=== PATIENT | female | born 1945 | race Hispanic/Latino ===

== ENCOUNTER 2019-04-09 09:07 | Emergency (ER) | payer MEDICARE, SELFPAY ==
[2019-04-09 09:23] VITALS: BP 172/96; PULSE 79; RESP 16; TEMP 36.6; O2SAT 99
--- NOTE | 2019-04-09 09:29 | ED.GENADULT ---
HPI - General Adult General Chief complaint: Urogenital-Female Stated complaint: Poss UTI Time Seen by Provider: 04/09/19 09:30 Source: patient and RN notes reviewed Mode of arrival: ambulatory Limitations: no limitations History of Present Illness HPI narrative: This is a 73 years old female presents to the office for an evaluation of possible UTI. Complaints of painful urinating. She just completed a week of cipro for UTI from her family doctor. Patient states her symptoms did not resolved completedly with antibiotic; but it gotten worse this morning when she voids. Related Data Home Medications Medication Instructions Recorded Confirmed allopurinol 100 mg PO DAILY 04/09/19 04/09/19 ergocalciferol (vitamin D2) 50,000 unit PO MONTHLY 04/09/19 04/09/19 [Vitamin D2] ferrous sulfate 324 mg PO BID 04/09/19 04/09/19 lisinopril 10 mg PO DAILY 04/09/19 04/09/19 oxycodone-acetaminophen 1 tablet PO Q6H 04/09/19 04/09/19 Allergies Allergy/AdvReac Type Severity Reaction Status Date / Time codeine AdvReac Mild DIZZY Verified 04/09/19 09:31 Review of Systems Review of Systems: Narrative: CONSTITUTIONAL: Denies fever ENT: Denies rhinorrhea, sore throat CARDIOVASCULAR: Denies chest pain RESPIRATORY: Denies cough GASTROINTESTINAL: Denies abdominal pain, nausea, vomiting, diarrhea. GENITOURINARY: Reports urinary pain and urgency SKIN: Denies rash MUSCULOSKELETAL: Denies acute back pain, joint pain, or myalgia. NEUROLOGIC: Denies numbness, or focal weakness. PMFSH Past Medical History Medical History (Updated 04/09/19 @ 09:41 by ELIZABETH Maurice) Gout HLD (hyperlipidemia) HTN (hypertension) Surgical History Surgical History (Updated 04/09/19 @ 09:09 by ELIZABETH Maurice) Hx of cholecystectomy Social History Social History (Updated 04/09/19 @ 09:30 by ELIZABETH Maurice) Smoking status: Never smoker Gender identity (if verbalized by the patient): Female Comments At time of signature, I agree with nursing past medical, surgical, social and family history. There is no relevant family history pertinent to the presenting complaint. Exam Narrative: Exam Narrative: GENERAL: This is a well-nourished, well-developed patient, in no apparent distress. CARDIOVASCULAR: Regular rate and rhythm without murmurs, gallops, or rubs. RESPIRATORY: Clear to auscultation. Breath sounds equal bilaterally. No wheezes, rales, or rhonchi. GASTROINTESTINAL: Abdomen soft, non-tender, nondistended. Bowel sounds are active. No hepato-splenomegaly, or palpable masses. No guarding. SKIN: warm, intact with no suspicious lesions or rash, good texture and turgor. NEURO: awake, alert, and oriented to person, place and time. There were no obvious focal neurologic abnormalities. Steady gait BACK: No flank tenderness. William Coma Scale Eye Opening: Spontaneous 4 Tabor Coma Scale Motor: Obeys Commands 6 William Coma Scale Verbal: Oriented 5 Medical Decision Making MDM Narrative Medical decision making narrative: Discharge instructions reviewed with patient, as well as provided in writing per nursing staff. The instructions also include specific and strict return/GO TO THE ER as well as f/u information. All questions have been answered, and the patient deny any further questions with discharge and discharge plan. Differential Diagnosis Differential Diagnosis: Cystitis, Nephrolithiasis, bacterial vaginosis, Nephritis, candidiasis, vaginitis, pyelonephritis Medical Records Medical records reviewed: Yes I reviewed the patient's medical records. Critical Care Time Critical Care Time Critical Care Time: No Discharge Plan Discharge Clinical Impression: Acute UTI (urinary tract infection), Elevated blood pressure reading in office with diagnosis of hypertension Patient Disposition: Home, Self-Care Condition: Stable Instructions: Antibiotic Form, Urinary Tract Infection in Women (ED) Additional Instructions
== END 2019-04-09 09:42 | disposition home or self-care (01) ==
PROVIDERS: Emergency Provider Nurse Practitioner; PCP Family Medicine
DX: N39.0 Urinary tract infection, site not specified (principal); I10 Essential (primary) hypertension; E78.5 Hyperlipidemia, unspecified; M10.9 Gout, unspecified
CPT/HCPCS: 81003; 87086; 87088; 99213; G0463

== ENCOUNTER 2019-05-13 13:55 | Outpatient (CLI) | payer MEDICARE, SELFPAY ==
--- NOTE | ~2019-05-13 | US_ITS ---
US renal BI 05/13/2019 14:48 Procedure: Realtime transabdominal ultrasound of the kidneys and bladder. Indication: Abnormal renal function tests Comparison: No prior studies for comparison. Findings: Renal echotexture is increased bilaterally without hydronephrosis, contour deforming mass o r renal calculus. There are bilateral renal cysts measuring up to 1.8 cm on the right and 1.5 cm on t he left. The right kidney measures 8.2 cm and left kidney measures 8 cm. Bladder within normal limit s. Impression: 1: Increased cortical echotexture with poor cortical medullary differentiation, compatible with chron ic medical renal disease. 2: Bilateral renal cysts. Reviewed, dictated and finalized at location B. IVES SPECIALIST Impression: 1: Increased cortical echotexture with poor cortical medullary differentiation, compatible with chronic medical renal disease. 2: Bilateral renal cysts.
== END 2019-05-13 13:56 | disposition home or self-care (01) ==
PROVIDERS: PCP Family Medicine; Visit Provider Internal Medicine Nephrology
DX: R94.4 Abnormal results of kidney function studies (principal); N28.1 Cyst of kidney, acquired; R93.429 Abnormal radiologic findings on diagnostic imaging of unspecified kidney
CPT/HCPCS: 76775

== ENCOUNTER 2019-12-27 14:00 | Emergency (ER) | payer MEDICARE, SELFPAY ==
--- NOTE | ~2019-12-27 | XR_ITS ---
EXAMINATION: XR knee LT 3V EXAM DATE: 12/27/2019 15:18 INDICATION: Anterior Knee Pain, No Acute Injury TECHNIQUE: Three projections of the left knee. Comparison is made to prior examination from 06/28/2003 . FINDINGS: No evidence osteochondral defect or joint body in the left knee joint. There are no acute fractures or dislocations identified. There is no subcutaneous gas. The soft tissue is unremarkabl e. There are no radiopaque foreign bodies. No joint effusion. There is mild patellofemoral primary osteoarthritis. IMPRESSION: Mild left patellofemoral compartment osteoarthritis. Reviewed, dictated and finalized at location A.
[2019-12-27 14:12] VITALS: BP 163/89; PULSE 91; RESP 14; TEMP 36.3; O2SAT 98
[2019-12-27] MEDS: KETOROLAC (*BKC) 60 MG/2 ML VIAL 15 MG IM (15:05)
--- NOTE | 2019-12-27 15:35 | ED.GENADULT ---
HPI - General Adult General Chief complaint: Extremity Injury, Lower Stated complaint: L knee pain Time Seen by Provider: 12/27/19 14:07 Source: patient and family Mode of arrival: ambulatory Limitations: no limitations History of Present Illness HPI narrative: Patient is a 74-year-old female who presents to emergency department noting atraumatic left anterior knee pain for the last several days has history of arthritis is on chronic pain medication for this which she was taking with minimal improvement patient denies injury or trauma denies other injuries or complaints presents in no distress pain is worse with weightbearing was unable to get into primary care Related Data Home Medications Medication Instructions Recorded Confirmed oxycodone-acetaminophen 1 tablet PO Q6H 04/09/19 04/09/19 Allergies Allergy/AdvReac Type Severity Reaction Status Date / Time codeine AdvReac Mild DIZZY Verified 12/27/19 14:38 Review of Systems Review of Systems: All systems reviewed & are unremarkable except as noted in HPI and below PMFSH Past Medical History Medical History Gout HLD (hyperlipidemia) HTN (hypertension) Surgical History Surgical History Hx of cholecystectomy Social History Social History Smoking status: Never smoker Gender identity (if verbalized by the patient): Female Exam Narrative: Exam Narrative: GENERAL: Well-appearing, well-nourished, and in no acute distress. HEAD: Normocephalic, atraumatic. EYES: PERRLA and EOMI. ENT: Nares clear, no rhinorrhea or epistaxis. Mucous membranes moist. CHEST: Clear to auscultation. No respiratory distress. No wheezes rales or rhonchi HEART: Regular rate and rhythm. No murmur heard. Normal peripheral pulses. EXTREMITIES: Normal range of motion. No edema. Tenderness of the anterior left knee no erythema no warmth to touch no other abnormalities remainder of leg nontender SKIN: Warm, dry, no rash. NEURO: No focal deficits. Alert and oriented x3. Neurovascularly intact PSYCH: Normal mood and affect. Course Course Emergency Course: Patient in the room at this time in no distress aware of case findings treatment plan and diagnosis agreeing to follow-up as directed or to return if symptoms worsen or concerns Vital Signs Vital signs: Vital Signs Temperature 97.4 F L 12/27/19 14:12 Pulse Rate 91 12/27/19 14:12 Respiratory Rate 14 12/27/19 14:12 Blood Pressure 163/89 H 12/27/19 14:12 Pulse Oximetry 98 12/27/19 14:12 Temperature 97.4 F L 12/27/19 14:12 Pulse Rate 91 12/27/19 14:12 Respiratory Rate 14 12/27/19 14:12 Blood Pressure 163/89 H 12/27/19 14:12 Pulse Oximetry 98 12/27/19 14:12 Medical Decision Making MDM Narrative Medical decision making narrative: Patients injury or pain is consistent with musculoskeletal etiology. No signs of neurological or vascular compromise on exam. Compartments and tisues are soft without signs of compartment syndrome. Pain is felt appropriate for further evaluation on an outpatient basis. Vital Signs Vital Signs: Vital Signs Temperature 97.4 F L 12/27/19 14:12 Pulse Rate 91 12/27/19 14:12 Respiratory Rate 14 12/27/19 14:12 Blood Pressure 163/89 H 12/27/19 14:12 Pulse Oximetry 98 12/27/19 14:12 Temperature 97.4 F L 12/27/19 14:12 Pulse Rate 91 12/27/19 14:12 Respiratory Rate 14 12/27/19 14:12 Blood Pressure 163/89 H 12/27/19 14:12 Pulse Oximetry 98 12/27/19 14:12 Discharge Plan Discharge Clinical Impression: Acute pain of left knee Patient Disposition: Home, Self-Care Condition: Stable Instructions: Antibiotic Form, Arthralgia (ED) Additional Instructions: Wear Bucky wrap with limited weight on the affected leg until able to bear weight without pain. Ice and elevate extremity.
[2019-12-27 15:45] VITALS: BP 171/83; PULSE 62; RESP 18; O2SAT 99
== END 2019-12-27 15:55 | disposition home or self-care (01) ==
PROVIDERS: Emergency Provider Emergency Medicine; PCP Family Medicine
DX: M25.562 Pain in left knee (principal); E78.5 Hyperlipidemia, unspecified; I10 Essential (primary) hypertension
CPT/HCPCS: 73562; 96372; 99283; J1885

== ENCOUNTER 2020-03-14 18:21 | Inpatient (IN) | payer MEDICARE, SELFPAY ==
--- NOTE | ~2020-03-14 | US_ITS ---
EXAMINATION: US renal BI DATE: 03/16/2020 09:58 INDICATION: Left kidney mass. TECHNIQUE: Multiple ultrasound grayscale images of the kidneys were obtained. COMPARISON: CT abdomen and pelvis 03/14/2020, lumbar spine MRI 07/16/2017, thoracic spine CT 03/12/2012 FINDINGS: The right kidney measures 8.0 x 4.7 x 4.2 cm. The left kidney measures 9.8 x 4.7 x 3.8 cm. There is c ortical thinning of the kidneys. The kidneys demonstrate normal parenchymal echogenicity. There is a 2.0 cm cyst in right kidney. There is a 5.1 cm cyst in left kidney. There is no hydronephrosis. The b ladder is normal. IMPRESSION: 1. Benign cysts in the kidneys. 2. Mild atrophy of the kidneys. Reviewed, dictated and finalized at location A. ERS COMPENSATION CLAIMS SUPERVISOR
--- NOTE | ~2020-03-14 | XR_ITS ---
EXAMINATION: XR chest 1V portable EXAM DATE: 03/14/2020 21:20 INDICATION: Evaluate for COVID. Abnormal chest x-ray. TECHNIQUE: Portable AP frontal chest x-ray was obtained. There is no prior study for comparison. FINDINGS: Difficult to appreciate the definite groundglass density confirmed on CT obtained earlier. No confluent consolidation, pneumothorax or pleural effusion suspected. Cardiomediastinal silhouette is normal. There are no osseous abnormalities identified. IMPRESSION: Can't identify the lingular groundglass airspace disease confirmed on CT. Reviewed, dictated and finalized at location A. E CONSULTANT
--- NOTE | ~2020-03-14 | XR_ITS ---
XR chest 1V portable 03/16/2020 09:38 Indication: Cough Procedure: AP portable chest Comparison: 03/14/2020 Findings: Heart size normal. No focal air space disease, pulmonary edema, pleural effusion or suspect ed pneumothorax. No acute osseous abnormality. There are cholecystectomy clips. Impression: 1: No acute cardiopulmonary disease. Reviewed, dictated and finalized at location A. FED CASING TIER Impression: 1: No acute cardiopulmonary disease.
--- NOTE | ~2020-03-14 | CT_ITS ---
EXAMINATION: CT abdomen pelvis wo con EXAM DATE: 03/14/2020 19:25 INDICATION: Diarrhea. TECHNIQUE: Spiral CT of the abdomen was performed without contrast. Axial, coronal and sagittal alba ges were reviewed. The dose-length product (DLP) for this examination was 546.09 mGy-cm. The exposu re was tailored according to patient size (auto mA exposure control), and iterative reconstruction (A SIR) was used as additional dose reduction technique. There is no prior study for comparison. FINDINGS: There is moderate amount of lingular groundglass airspace disease suspicious for acute infe ctious process. Please clinically correlate. The liver, spleen, adrenal glands and pancreas are unre markable. There are cholecystectomy clips. Moderate bilateral renal atrophy. There is a left renal lesion measuring 5.6 cm, 22 Hounsfield units, could be proteinaceous cyst or solid mass. There is n o retroperitoneal lymphadenopathy. There is mild scattered arteriosclerotic disease. Normal appendix. There is extensive sigmoid predominant colonic diverticulosis. There is no adjacent inflammatory change to suggest diverticulitis. The stomach and small bowel are unremarkable. There is expected amount of colonic stool. No free intraperitoneal gas. The heart is normal in size. T here are no pericardial or pleural effusions. There are no osteoblastic or osteolytic lesions iden tified. IMPRESSION: 1. Lingular groundglass opacity, most likely acute infectious process. 2. Indeterminate left renal lesion could be hemorrhagic cyst but nonemergent ultrasound indicated. 3. Sigmoid diverticulosis. Reviewed, dictated and finalized at location A. ICIST SOLID EARTH IMPRESSION: 1. Lingular groundglass opacity, most likely acute infectious process. 2. Indeterminate left renal lesion could be hemorrhagic cyst but nonemergent u ltrasound indicated. 3. Sigmoid diverticulosis.
--- NOTE | ~2020-03-14 | CT_ITS ---
EXAMINATION: CT brain wo con EXAM DATE: 03/14/2020 19:24 INDICATION: Weakness. TECHNIQUE: Spiral CT of the head was performed without contrast. Axial, coronal and sagittal images were reviewed. The dose-length product (DLP) for this examination was 605.33 mGy-cm. The exposure w as tailored according to patient size, and iterative reconstruction (ASIR) was used as additional dos e reduction technique. There is no prior study for comparison. FINDINGS: There is no acute intraparenchymal hemorrhage. No evidence of intraparenchymal brain mass lesion. No evidence of acute infarction. Please note that initial head CT has limited sensitivity f or small or acute infarctions. There is mild periventricular and subcortical hypodensity, nonspecific but probably related to small vessel ischemic disease. There is mild prominence of the sulci and v entricles related to cerebral atrophy. There is intracranial carotid arteriosclerosis. There are n o extra-axial collections. There is no mass effect or midline shift. The orbits are unremarkable. Soft tissue is unremarkable. The visualized sinuses and mastoid air cells are well aerated. IMPRESSION: 1. No acute intracranial findings. 2. Chronic age related findings. Reviewed, dictated and finalized at location A. MACY INFORMATICS SPECIALIST
--- NOTE | 2020-03-14 18:23 | ED.NAVMDI ---
HPI - Nausea/Vomiting/Diarrhea General Chief complaint: Nausea/Vomiting/Diarrhea Stated complaint: diarrhea, weak Time Seen by Provider: 03/14/20 18:23 Source: patient Mode of arrival: ambulatory Limitations: no limitations History of Present Illness HPI Narrative: Patient is a 74-year-old female who presents for evaluation of generalized weakness and diarrhea. Patient states over the past week she has had no energy. She reports becoming ill with a cough last week, denies any current cough, fever or myalgias. No shortness of breath. She states that no one in her family has been diagnosed with Covid. She was never tested for Covid. Patient states she has had watery diarrhea without blood or mucus present. She denies any abdominal pain. She states that she has no appetite. Her daughter has been able to give her minimal help at home. No falls. No focal numbness or weakness. No rashes. No recent travel. Pt follows with Dr. Grimm with nephrology. Per chart review, last Cr 1.3-1.5. Pt lives with several family members, sees many grandchildren. One of patient's daughters called and stated covid is political and she does not believe mother has been exposed. Related Data Home Medications Medication Instructions Recorded Confirmed oxycodone-acetaminophen 1 tablet PO Q6H 04/09/19 04/09/19 Allergies Allergy/AdvReac Type Severity Reaction Status Date / Time codeine AdvReac Mild DIZZY Verified 01/04/20 13:04 Review of Systems Review of Systems: Narrative: CONSTITUTIONAL: Denies fever, chills, or sweats. EYES: Denies visual changes ENT: Denies rhinorrhea, congestion, sore throat, or otalgia. CARDIOVASCULAR: Denies chest pain, palpitations, or edema. RESPIRATORY: Denies current cough or dyspnea. GASTROINTESTINAL: Denies abdominal pain, nausea, vomiting, reports watery diarrhea GENITOURINARY: Denies dysuria or hematuria. SKIN: Denies rash or itching. MUSCULOSKELETAL: Denies back pain, joint pain, or myalgia. NEUROLOGIC: Denies headache, numbness, reports feeling diffusely weak PMFSH Past Medical History Medical History Chondromalacia patellae, left knee Gout History of adverse reaction to anesthesia HLD (hyperlipidemia) HTN (hypertension) Surgical History Surgical History Hx of cholecystectomy Family History Family History (Updated 01/05/20 @ 10:45 by Patricia Alcaraz RT(R)) Father Diabetes mellitus Social History Social History Smoking status: Never smoker Alcohol intake: never Gender identity (if verbalized by the patient): Female Exam Narrative: Exam Narrative: GENERAL: Awake, alert, conversant HEAD: Normocephalic, atraumatic. EYES: PERRLA and EOMI. ENT: Nares clear, no rhinorrhea or epistaxis. Mucous membranes dry NECK: Supple. CHEST: No respiratory distress, breathing even and non labored HEART: Regular rate, sinus rhythm ABDOMEN:Non distended, non tender EXTREMITIES: Normal range of motion. No edema. SKIN: Warm, dry, no rash. NEURO:No focal deficits. Alert and oriented x3 Course Vital Signs Vital signs: Vital Signs Temperature 36.7 C 03/14/20 18:54 Pulse Rate 83 03/14/20 18:54 Respiratory Rate 14 03/14/20 18:54 Blood Pressure 135/84 03/14/20 18:54 Pulse Oximetry 99 03/14/20 18:54 Temperature 36.7 C 03/14/20 18:54 Pulse Rate 83 03/14/20 21:04 Respiratory Rate 16 03/14/20 21:04 Blood Pressure 127/93 H 03/14/20 21:04 Pulse Oximetry 98 03/14/20 21:04 MDM - Nausea/Vomiting/Diarrhea MDM Narrative Medical decision making narrative: Patient presented for evaluation of diarrhea, lethargy, decreased oral intake over the past week. Patient initially said she had cough and respiratory symptoms last week but those have since resolved. She is denying any cough or chest pain. Patient sta
[2020-03-14 18:40] LABS: Basophils Percent Auto 0.2 % (0.2-1.2); Eosinophils Percent Auto 0.2 % (0-4.4); Hematocrit 38.7 % (37.0-47.0); Hemoglobin 12.4 g/dL (12.0-15.0); Immature Granulocyte Absolute 0.01 K/mm3 (0.00-0.031); Immature Granulocyte Percent A 0.2 % (0-0.5); Lymphocytes Absolute Auto 1.77 K/mm3 (0.9-3.2); Lymphocytes Percent Auto 36.3 % (18.3-44.2); Mean Corpuscular Hemoglobin 31.3 pg (26-34); Mean Corpuscular Volume 97.7 fl (80-100); Mean Platelet Volume 10.5 fl (7.4-10.4); Monocytes Absolute Auto 0.7 K/mm3 (0.1-0.6); Monocytes Percent Auto 14.4 % (2.6-8.5); Neutrophils Absolute Auto 2.4 K/mm3 (1.3-6.7); Neutrophils Percent Auto 48.7 % (45.5-73.1); Platelet Count Result 173 k/mm3 (150-375); Red Blood Count 3.96 M/mm3 (4.2-5.4); Red Cell Distribution Width 13.5 % (11.5-14.5); White Blood Count 4.9 K/mm3 (4.5-10.0)
[2020-03-14 18:52] LABS: Alanine Aminotransferase 43 U/L (4-35); Albumin Level 4.1 g/dL (3.5-5.1); Alkaline Phosphatase 159 U/L (38-126); Anion Gap 8 mmol/L (8-16); Aspartate Amino Transferase 43 U/L (14-36); Bilirubin,Total 0.4 mg/dL (0.2-1.3); Blood Urea Nitrogen 42 mg/dL (7-17); Calcium 8.6 mg/dL (8.4-10.2); Carbon Dioxide 26 mmol/L (22-30); Chloride 103 mmol/L (98-107); Estimated Glomerular Filt Rate 15; Glucose 107 mg/dL (65-105); Lipase 95 U/L (23-300); Potassium 4.1 mmol/L (3.4-5.0); Sodium 137 mmol/L (137-145)
[2020-03-14 18:54] VITALS: BP 135/84; PULSE 83; RESP 14; TEMP 36.7; O2SAT 99
[2020-03-14] MEDS: SODIUM CHLORIDE 0.9% IV 2,000 ML 999 ML IV CONT (18:56)
[2020-03-14 19:05] LABS: Creatine Kinase 38 U/L (30-135)
[2020-03-14 19:30] VITALS: BP 144/80; PULSE 83; RESP 14; O2SAT 97
[2020-03-14 19:59] LABS: Add Urine Microscopic? YES; Appearance Urine Clear (Clear); Bacteria Urine Trace /hpf; Bilirubin Urine Negative (Negative); Blood Urine 1+ (Negative); Color Urine Straw (Yellow); Glucose Urine UA Negative (Negative); Ketones Urine Negative (Negative); Leukocyte Esterase Ur 1+ LEU/UL (Negative); Nitrate Urine Negative (Negative); Protein Urine 1+ mg/dL (Negative); Specific Grav Ur 1.006 (1.001-1.035); Squamous Epithelial Cell Urine Rare /hpf (Few); Urobilinogen Urine Negative mg/dL (<2.0)
[2020-03-14 20:00] VITALS: BP 148/87; PULSE 77; RESP 16; O2SAT 97
[2020-03-14 21:04] VITALS: BP 127/93; PULSE 83; RESP 16; O2SAT 98
[2020-03-14 22:15] VITALS: BP 150/82; PULSE 78; RESP 20; TEMP 37.3; O2SAT 97; O2SAT 98; BMI 24.7
--- NOTE | 2020-03-14 22:18 | ADMGEN ---
This patient, Dottie Gallardo, was admitted to [facility] Surg Room 312-01. Patient/family oriented to hospital policies and general routines including ID bracelet, bed and alarms, visiting hours, pain management, procedures, bathroom and other care routines, personal items, smoking policy, room service/diet, and visiting hours. Information on how to activate the Rapid Response Team has been discussed. Patient/Family are encouraged to report perceived risks to care and to ask questions if they do not understand what they are told or what they should do.
[2020-03-14] MEDS: SODIUM CHLORIDE 0.9% IV 1,000 ML 125 ML IV CONT (22:24)
--- NOTE | 2020-03-14 22:27 | PM.IMHP ---
H&P: HPI History of Present Illness Date/Time: 03/14/20 22:27 Chief Complaint: Generalized weakness since last week Narrative: This is a pleasant 74 year old female who presented to the hospital for increased generalized weakness over the past two weeks and diarrhea. Her diarrhea is described as watery and nonbloody. She has had respiratory symptoms over the past week with a mild cough, runny nose, fever, and generalized weakness. The patient tonight denies any fever, chills, cough, shortness of breath, chest pain, nausea or vomiting. She does not believe she has any contact with anyone who has had COVID-19. The patient is known to see Nephrology for chronic renal failure. She was evaluated in the ER and found to be in acute renal failure. She was tested for COVID-19 tonight. ER provider has consulted Nephrology, Dr. Grimm. No other complaints. Review of Systems Review of Systems: All systems reviewed & are unremarkable except as noted in HPI and below PMFSH Past Medical History Medical History Chondromalacia patellae, left knee Gout History of adverse reaction to anesthesia HLD (hyperlipidemia) HTN (hypertension) Surgical History Surgical History Hx of cholecystectomy Family History Family History Father Diabetes mellitus Social History Social History Smoking status: Never smoker Alcohol intake: never Substance use: never Gender identity (if verbalized by the patient): Female Meds Home Medications and Allergies Home Medications Medication Instructions Recorded Confirmed Type allopurinol 100 mg PO DAILY 03/14/20 03/14/20 History amlodipine 5 mg PO DAILY 03/14/20 03/14/20 History ergocalciferol (vitamin D2) 1,250 mcg PO MONTHLY 03/14/20 03/14/20 History Allergies Allergy/AdvReac Type Severity Reaction Status Date / Time codeine AdvReac Mild DIZZY Verified 01/04/20 13:04 Vital Signs Vital Signs - 24 hr 03/14/20 18:54 03/14/20 19:30 03/14/20 20:00 Temperature 36.7 C Pulse Rate 83 83 77 Respiratory Rate 14 14 16 Blood Pressure 135/84 144/80 H 148/87 H Pulse Oximetry 99 97 97 03/14/20 21:04 Temperature Pulse Rate 83 Respiratory Rate 16 Blood Pressure 127/93 H Pulse Oximetry 98 Exam Const: General: cooperative, no acute distress, alert, awake, ill appearing, tired appearing and other (dehydrated+) Nutritional Appearance: well nourished Orientation/consciousness: patient oriented x3 HENMT: Head: normal to inspection General nose exam: Normal external nose present Face and sinus: normal facial exam Mouth: Yes Normal oral and palatal mucosa present and Yes oropharynx normal Eyes: Pupils: Equal, round and reactive pupils present EOM: EOMs intact bilaterally Neck: Neck: supple and no JVD Thyroid: thyroid normal Lymphatic: lymphadenopathy not noted Resp: Effort & Inspection: normal respiratory effort Auscultation: rales (Bibasilar rales+++ ) Cardio: Rate: regular rate Rhythm: regular rhythm Heart sounds: no murmurs GI: Inspection: normal to inspection Auscultation: normal bowel sounds Skin: General skin exam: normal color and no rashes or lesions noted Neuro: General: patient oriented x3 Cranial nerves: Yes CN's II-XII intact bilaterally and Yes Equal, round and reactive pupils present Speech: normal speech Motor exam (neuro): 5/5 motor strength present throughout Sensory Exam: normal sensation Extrem: General: normal to inspection and no edema Psych: Mental Status: mental status grossly normal Affect: normal affect H&P: Results Labs Labs: Short CBC 03/14/20 Range/Units 18:34 WBC 4.9 (4.5-10.0) K/mm3 Hgb 12.4 (12.0-15.0) g/dL Hct 38.7 (37.0-47.0) % Plt Count 173 (150-375) k/mm3 BMP 03/14/20 18:34 S
[2020-03-15] VITALS (8 sets, daily range): BP systolic 143–168; BP diastolic 78–92; PULSE 71–91; RESP 16–20; TEMP 36.4–37.3; O2SAT 93–100
[2020-03-15] MEDS: SODIUM CHLORIDE 0.9% IV 1,000 ML 125 ML IV CONT ×2 (06:13→15:33)
[2020-03-15 09:29] LABS: Anion Gap 4 mmol/L (8-16); Blood Urea Nitrogen 35 mg/dL (7-17); Calcium 8.1 mg/dL (8.4-10.2); Carbon Dioxide 26 mmol/L (22-30); Chloride 113 mmol/L (98-107); Estimated CRCL calculation 14 ml/min; Estimated Glomerular Filt Rate 22; Glucose 91 mg/dL (65-105); Potassium 4.1 mmol/L (3.4-5.0); Sodium 143 mmol/L (137-145)
[2020-03-15] MEDS: amLODIPine BESYLATE 5 MG TABLET PO (10:18)
--- NOTE | 2020-03-15 17:18 | PM.IMPN ---
Progress Note: A&P Assessment and Plan (1) Suspected 2019 novel coronavirus infection: Code(s): Z20.822 - Contact with and (suspected) exposure to COVID-19 Status: Acute Assessment and Plan: Continue droplet isolation, Supportive care. COVID-19 results pending. Dexamethasone started Oxygen supplementation as needed. Bronchodilators. DuoNebs and albuterol nebulizer treatments ordered antitussives. Mucinex ordered CT of abdomen and pelvis completed yesterday showed moderate amount of lingular groundglass airspace disease suspicious for acute infectious process. Chest x-ray ordered for tomorrow morning (2) Acute on chronic renal failure: Qualifiers: Acute renal failure type: unspecified Chronic kidney disease stage: stage 4 (severe) Qualified Code(s): N17.9 - Acute kidney failure, unspecified; N18.4 - Chronic kidney disease, stage 4 (severe) Code(s): N17.9 - Acute kidney failure, unspecified; N18.9 - Chronic kidney disease, unspecified Status: Acute Assessment and Plan: The patient has been placed in observation status. Likely secondary to acute diarrhea and poor PO intake of fluids. continue Light IV fluids overnight. Monitor renal function and urine output. Creatinine improved from 3.0 to 2.2 today Unsure what her baseline renal function is, no other labs shown in computerized medical records. Avoid nephrotoxic agents. Appreciate rib knitter's consultation (3) Generalized weakness: Code(s): R53.1 - Weakness Status: Acute Assessment and Plan: Appears to be secondary to viral syndrome and also likely dehydration. PT/OT evaluation ordered Continue IV rehydration Encourage better oral nutrition and TID supplements (4) Transaminitis: Code(s): R74.01 - Elevation of levels of liver transaminase levels Status: Acute Assessment and Plan: Likely secondary to COVID-19. COVID pending, not currently on IV antiviral Unsure of the cause for mild elevated liver LFTs, most likely dehydration related, but chronic renal insufficiency and chronic daily allopurinol dosing may be the culprit AST is 43, ALT 43, alkaline phosphatase 159 Monitor LFTs, CMP and coags ordered for the morning. (5) HTN (hypertension): Qualifiers: Hypertension type: unspecified Qualified Code(s): I10 - Essential (primary) hypertension Code(s): I10 - Essential (primary) hypertension Status: Chronic Assessment and Plan: Monitor blood pressure, Continue home antihypertensives, daily low-dose amlodipine 5 mg Systolics have been 140s and 150s Ordered p.r.n. amlodipine 5 mg should systolics be above 160 (6) HLD (hyperlipidemia): Qualifiers: Hyperlipidemia type: unspecified Qualified Code(s): E78.5 - Hyperlipidemia, unspecified Code(s): E78.5 - Hyperlipidemia, unspecified Status: Chronic Assessment and Plan: stable. resume fish oil pills prior to discharge. (7) Gout: Qualifiers: Chronicity: chronic Gout etiology: unspecified cause Gout site: unspecified site Presence of tophus: without tophus Qualified Code(s): M1A.9XX0 - Chronic gout, unspecified, without tophus (tophi) Code(s): M10.9 - Gout, unspecified Status: Chronic Assessment and Plan: resume allopurinol when appropriate. No flare-ups noted at this time obvious history of RA with enlarged joints, especially the hands noted during examination. (8) UTI (urinary tract infection): Code(s): N39.0 - Urinary tract infection, site not specified Status: Acute Assessment and Plan: UA positive for UTI Trace bacteria, leukocytes +1, 4-6 WBC, Started on IV Rocephin Urine cultures pending Continue IV fluids at 75 mL an hour, decreased from 125 mL an hour (9) Renal lesion: Code(s): N28.9 - Disorder of kidney and ureter, unspecified Status: Acute Assessment and Plan: CT of abdomen and pel
[2020-03-15] MEDS: DEXAMETHASONE 2 MG TABLET 6 MG PO (18:25)
[2020-03-15 19:23] LABS: SARS-CoV-2 RNA PCR Positive
[2020-03-15] MEDS: ALBUTEROL SULFATE NEB 2.5 MG/0.5 ML INH INHALATION (20:34)
[2020-03-15] MEDS: IPRATROPIUM BR 0.02% INH SOLN 0.5 MG/2.5 ML VIAL INHALATION (20:34)
[2020-03-15] MEDS: ENOXAPARIN 40 MG/0.4 ML SYRINGE SUB-Q (21:00)
[2020-03-16] VITALS (13 sets, daily range): BP systolic 142–171; BP diastolic 74–88; PULSE 68–109; RESP 16–20; TEMP 36.1–37.1; O2SAT 97–100
[2020-03-16] MEDS: IPRATROPIUM BR 0.02% INH SOLN 0.5 MG/2.5 ML VIAL INHALATION ×4 (01:54→21:08)
[2020-03-16] MEDS: ALBUTEROL SULFATE NEB 2.5 MG/0.5 ML INH INHALATION ×4 (01:54→21:08)
[2020-03-16] MEDS: SODIUM CHLORIDE 0.9% IV 1,000 ML 75 ML IV CONT ×2 (02:34→15:56)
[2020-03-16 06:13] LABS: Hematocrit 35.5 % (37.0-47.0); Hemoglobin 11.2 g/dL (12.0-15.0); Immature Granulocyte Absolute 0.03 K/mm3 (0.00-0.031); Lymphocytes Absolute Auto 0.63 K/mm3 (0.9-3.2); Lymphocytes Percent Auto 20.5 % (18.3-44.2); Mean Corpuscular HGB Conc 31.5 g/dl (32-36); Mean Corpuscular Hemoglobin 30.4 pg (26-34); Mean Corpuscular Volume 96.5 fl (80-100); Mean Platelet Volume 10.5 fl (7.4-10.4); Monocytes Absolute Auto 0.1 K/mm3 (0.1-0.6); Monocytes Percent Auto 3.6 % (2.6-8.5); Neutrophils Absolute Auto 2.3 K/mm3 (1.3-6.7); Neutrophils Percent Auto 74.9 % (45.5-73.1); Platelet Count Result 160 k/mm3 (150-375); Red Blood Count 3.68 M/mm3 (4.2-5.4); Red Cell Distribution Width 13.4 % (11.5-14.5); White Blood Count 3.1 K/mm3 (4.5-10.0)
--- NOTE | 2020-03-16 06:23 | PC.NURSE ---
JOSIE MCGEE UPDATED X2 THIS SHIFT.
[2020-03-16 06:25] LABS: Prothrombin Time 13.8 Seconds (11.1-14.7)
[2020-03-16 06:31] LABS: Lactate Dehydrogenase 442 U/L (313-618)
[2020-03-16 06:41] LABS: Alanine Aminotransferase 29 U/L (4-35); Albumin Level 3.5 g/dL (3.5-5.1); Alkaline Phosphatase 147 U/L (38-126); Anion Gap 9 mmol/L (8-16); Aspartate Amino Transferase 32 U/L (14-36); Bilirubin,Total 0.3 mg/dL (0.2-1.3); Blood Urea Nitrogen 26 mg/dL (7-17); CRP 1.8 mg/dL (<1.0); Calcium 8.3 mg/dL (8.4-10.2); Carbon Dioxide 21 mmol/L (22-30); Chloride 116 mmol/L (98-107); Estimated CRCL calculation 16 ml/min; Estimated Glomerular Filt Rate 26; Glucose 169 mg/dL (65-105); Phosphorus 4.2 mg/dL (2.5-4.5); Sodium 146 mmol/L (137-145)
[2020-03-16] MEDS: amLODIPine BESYLATE 5 MG TABLET PO (09:29)
[2020-03-16] MEDS: DEXAMETHASONE 2 MG TABLET 6 MG PO (09:29)
[2020-03-16] MEDS: ENOXAPARIN 40 MG/0.4 ML SYRINGE SUB-Q (09:29)
[2020-03-16] MEDS: ACETAMINOPHEN 325 MG TABLET PO ×2 (10:34→21:57)
--- NOTE | 2020-03-16 11:08 | PM.CNNEP ---
Assessment and Plan Assessment and plan (1) Acute on chronic renal failure: Qualifiers: Acute renal failure type: unspecified Chronic kidney disease stage: stage 4 (severe) Qualified Code(s): N17.9 - Acute kidney failure, unspecified; N18.4 - Chronic kidney disease, stage 4 (severe) Code(s): N17.9 - Acute kidney failure, unspecified; N18.9 - Chronic kidney disease, unspecified Status: Acute Assessment and Plan: The patient has chronic kidney disease. This is based on hypertension. Her ultrasound shows smallish kidneys with some echogenicity. She also has some benign looking cysts. Serology and immunofixation were okay in the office. The patient has acute kidney injury on top of that. This is likely due to dehydration. She has been getting some IV fluids and her creatinine is better. COVID-19 can affect the kidneys as well, but the patient does not look toxic right now. She has not received any medications that would hurt the kidneys. She did not take any NSAIDs. She had a renal ultrasound which ruled out obstruction. Interstitial nephritis and glomerulonephritis are unlikely in this scenario. Will get urine electrolytes and eosinophils. (2) COVID-19: Code(s): U07.1 - COVID-19 Status: Acute Assessment and Plan: The patient is getting supportive Care and Dexamethasone. She does not need oxygen at this point. (3) Transaminitis: Code(s): R74.01 - Elevation of levels of liver transaminase levels Status: Acute Assessment and Plan: Liver enzymes are improving (4) HTN (hypertension): Qualifiers: Hypertension type: unspecified Qualified Code(s): I10 - Essential (primary) hypertension Code(s): I10 - Essential (primary) hypertension Status: Chronic Assessment and Plan: Blood pressure is up and down. Will keep an eye on this. (5) HLD (hyperlipidemia): Qualifiers: Hyperlipidemia type: unspecified Qualified Code(s): E78.5 - Hyperlipidemia, unspecified Code(s): E78.5 - Hyperlipidemia, unspecified Status: Chronic Assessment and Plan: She is on no agents as an outpatient. This can be followed in the office. (6) Gout: Qualifiers: Gout site: unspecified site Gout etiology: unspecified cause Chronicity: chronic Presence of tophus: without tophus Qualified Code(s): M1A.9XX0 - Chronic gout, unspecified, without tophus (tophi) Code(s): M10.9 - Gout, unspecified Status: Chronic Assessment and Plan: The patient is not having any symptoms History of Present Illness Reason for Consult Consult date: 03/16/20 Chief Complaint Chief complaint: Dehydration, acute kidney injury History of Present Illness Narrative: Yadira is a very pleasant 74-year-old lady whom I see in the office for chronic kidney disease. The patient's baseline creatinine runs around 2.5. It is most likely due to hypertension. The patient also has a history of gout, and hyperlipidemia. The patient says that she has been feeling bad for a week or so. She has been generally weak. She also has had a cough, rhinorrhea, fever, but no fever chills shortness of breath chest pain or GI symptoms. She came to the emergency room with these symptoms. She had a COVID-19 test which was positive. Her creatinine was elevated so renal consultation was requested. She is getting some IV fluids. She denies any bloody urine, foamy urine, kidney stones, or bladder infections. She denies any pain with urination or swelling. Review of Systems Constitutional: Constitutional: Reports no additional constitutional complaints Eyes: Eyes: Reports no additional eye complaints ENT: Reports system reviewed and no additional complaints, except as documented Cardiovascular: Cardiovascular: Reports no additional cardiovascular complaints Respiratory: Respiratory: Reports no additional respiratory complain
[2020-03-16] MEDS: POTASSIUM CHLORIDE 20 MEQ PACKET (FOR LIQUID) 40 MEQ PO (13:32)
--- NOTE | 2020-03-16 14:25 | PM.IMPN ---
Progress Note: A&P Assessment and Plan (1) Suspected 2019 novel coronavirus infection: Code(s): Z20.822 - Contact with and (suspected) exposure to COVID-19 Status: Acute Assessment and Plan: Continue droplet isolation, Supportive care. COVID-19 results pending. Dexamethasone started Oxygen supplementation as needed. Bronchodilators. DuoNebs and albuterol nebulizer treatments ordered antitussives. Mucinex ordered CT of abdomen and pelvis completed yesterday showed moderate amount of lingular groundglass airspace disease suspicious for acute infectious process. cxr today much better discharge tomorrow. (2) Acute on chronic renal failure: Qualifiers: Acute renal failure type: unspecified Chronic kidney disease stage: stage 4 (severe) Qualified Code(s): N17.9 - Acute kidney failure, unspecified; N18.4 - Chronic kidney disease, stage 4 (severe) Code(s): N17.9 - Acute kidney failure, unspecified; N18.9 - Chronic kidney disease, unspecified Status: Acute Assessment and Plan: The patient is inpatient status, creat is 1.9. was 3 on admission continue hydration (3) Generalized weakness: Code(s): R53.1 - Weakness Status: Acute Assessment and Plan: Appears to be secondary to viral syndrome and also likely dehydration. PT/OT evaluation ordered (4) Transaminitis: Code(s): R74.01 - Elevation of levels of liver transaminase levels Status: Acute Assessment and Plan: Likely secondary to COVID-19. (5) HTN (hypertension): Qualifiers: Hypertension type: unspecified Qualified Code(s): I10 - Essential (primary) hypertension Code(s): I10 - Essential (primary) hypertension Status: Chronic Assessment and Plan: bp high today adjust medications and dc tomorrow. (6) HLD (hyperlipidemia): Qualifiers: Hyperlipidemia type: unspecified Qualified Code(s): E78.5 - Hyperlipidemia, unspecified Code(s): E78.5 - Hyperlipidemia, unspecified Status: Chronic Assessment and Plan: stable. (7) Gout: Qualifiers: Chronicity: chronic Gout etiology: unspecified cause Gout site: unspecified site Presence of tophus: without tophus Qualified Code(s): M1A.9XX0 - Chronic gout, unspecified, without tophus (tophi) Code(s): M10.9 - Gout, unspecified Status: Chronic Assessment and Plan: resume allopurinol (8) UTI (urinary tract infection): Code(s): N39.0 - Urinary tract infection, site not specified Status: Acute Assessment and Plan: UA positive for UTI uc is negative stop iv rocephin (9) Renal lesion: Code(s): N28.9 - Disorder of kidney and ureter, unspecified Status: Acute Assessment and Plan: CT of abdomen and pelvis completed yesterday showed Moderate bilateral renal atrophy. There is a left renal lesion measuring 5.6 cm, 22 Hounsfield units, could be proteinaceous cyst or solid mass. There is no retroperitoneal lymphadenopathy. IMPRESSION: Indeterminate left renal lesion could be hemorrhagic cyst but nonemergent ultrasound indicated. Bilateral renal ultrasound ordered showed cysts Subjective Date/time seen: 03/16/20 14:25 Interval history: 74 year old female who presented to the hospital for increased generalized weakness over the past two weeks and diarrhea. Her diarrhea is described as watery and nonbloody. She has had respiratory symptoms over the past week with a mild cough, runny nose, fever, and generalized weakness. Today she complains of weakness and headache. Hopeful DC neri if she remains off oxygen , bp bit high and pt has headache today Review of Systems Review of Systems: All systems reviewed & are unremarkable except as noted in HPI and below Exam Narrative: Exam Narrative: Mild distress from headache Const: Nutritional Appearance: overweight Orientation/consciousness: oriented to pe
[2020-03-16] MEDS: amLODIPine BESYLATE 5 MG TABLET 10 MG PO (17:18)
[2020-03-17] VITALS (12 sets, daily range): BP systolic 144–169; BP diastolic 73–90; PULSE 78–94; RESP 16–20; TEMP 36.3–36.4; O2SAT 96–99
[2020-03-17] MEDS: ALBUTEROL SULFATE NEB 2.5 MG/0.5 ML INH INHALATION ×3 (03:10→14:35)
[2020-03-17] MEDS: IPRATROPIUM BR 0.02% INH SOLN 0.5 MG/2.5 ML VIAL INHALATION ×3 (03:10→14:35)
[2020-03-17] MEDS: SODIUM CHLORIDE 0.9% IV 1,000 ML 75 ML IV CONT (04:35)
[2020-03-17 06:33] LABS: Anion Gap 9 mmol/L (8-16); Blood Urea Nitrogen 31 mg/dL (7-17); Carbon Dioxide 21 mmol/L (22-30); Chloride 116 mmol/L (98-107); Estimated CRCL calculation 16 ml/min; Estimated Glomerular Filt Rate 26; Glucose 132 mg/dL (65-105); Potassium 4.5 mmol/L (3.4-5.0); Sodium 146 mmol/L (137-145)
[2020-03-17] MEDS: ENOXAPARIN 40 MG/0.4 ML SYRINGE SUB-Q (08:44)
[2020-03-17] MEDS: DEXAMETHASONE 2 MG TABLET 6 MG PO (08:44)
[2020-03-17] MEDS: amLODIPine BESYLATE 5 MG TABLET 10 MG PO (08:45)
[2020-03-17] MEDS: POTASSIUM CHLORIDE 20 MEQ PACKET (FOR LIQUID) 40 MEQ PO (08:45)
[2020-03-17] MEDS: DEXTROSE 5% 1,000 ML 1,000 ML 50 ML IV CONT (11:59)
--- NOTE | 2020-03-17 12:37 | PM.PNNEP ---
Progress Note: A&P Assessment and Plan (1) Acute on chronic renal failure: Qualifiers: Acute renal failure type: unspecified Chronic kidney disease stage: stage 4 (severe) Qualified Code(s): N17.9 - Acute kidney failure, unspecified; N18.4 - Chronic kidney disease, stage 4 (severe) Code(s): N17.9 - Acute kidney failure, unspecified; N18.9 - Chronic kidney disease, unspecified Status: Acute Assessment and Plan: The patient has chronic kidney disease. This is based on hypertension. Her ultrasound shows smallish kidneys with some echogenicity. She also has some benign looking cysts. Serology and immunofixation were okay in the office. The patient has acute kidney injury on top of that. This has improved and she has returned to her baseline creatinine. (2) COVID-19: Code(s): U07.1 - COVID-19 Status: Acute Assessment and Plan: The patient is getting supportive Care and Dexamethasone. She does not need oxygen at this point. (3) Transaminitis: Code(s): R74.01 - Elevation of levels of liver transaminase levels Status: Acute Assessment and Plan: Liver enzymes are improving (4) HTN (hypertension): Qualifiers: Hypertension type: unspecified Qualified Code(s): I10 - Essential (primary) hypertension Code(s): I10 - Essential (primary) hypertension Status: Chronic Assessment and Plan: Blood pressure is a bit high. Her amlodipine was just increased to 10. (5) HLD (hyperlipidemia): Qualifiers: Hyperlipidemia type: unspecified Qualified Code(s): E78.5 - Hyperlipidemia, unspecified Code(s): E78.5 - Hyperlipidemia, unspecified Status: Chronic Assessment and Plan: She is on no agents as an outpatient. This can be followed in the office. (6) Gout: Qualifiers: Gout site: unspecified site Gout etiology: unspecified cause Chronicity: chronic Presence of tophus: without tophus Qualified Code(s): M1A.9XX0 - Chronic gout, unspecified, without tophus (tophi) Code(s): M10.9 - Gout, unspecified Status: Chronic Assessment and Plan: The patient is not having any symptoms Subjective Date/time seen: 03/17/20 12:37 Interval history: Patient feels better. She is off oxygen. No shortness of breath and her O2 sats are fine Not eating very well because she has lost her sense of taste and smell Review of Systems Cardiovascular: Cardiovascular: Reports no additional cardiovascular complaints Respiratory: Respiratory: Reports no additional respiratory complaints Gastrointestinal: Gastrointestinal: Reports no additional gastrointestinal complaints Genitourinary: Genitourinary: Reports no additional female genitourinary complaints Exam Narrative: Exam Narrative: WDWN in NAD skin no rash head ncat lungs clear cor reg no rub abd BS+ nontender and soft ext no edema. Objective Data Vital Signs Vital Signs: Vital Signs - 24 hr 03/16/20 15:52 03/16/20 16:00 03/16/20 16:02 Temperature 36.4 C Pulse Rate 80 78 76 Respiratory Rate 18 20 18 Blood Pressure 171/88 H Pulse Oximetry 100 03/16/20 20:00 03/16/20 21:08 03/16/20 21:21 Temperature 36.1 C L Pulse Rate 82 80 109 H Respiratory Rate 16 20 20 Blood Pressure 156/84 H Pulse Oximetry 100 03/17/20 00:00 03/17/20 03:11 03/17/20 03:22 Temperature 36.3 C L Pulse Rate 84 78 79 Respiratory Rate 16 20 18 Blood Pressure 144/73 H Pulse Oximetry 99 03/17/20 04:00 03/17/20 06:51 03/17/20 08:00 Temperature 36.3 C L 36.4 C L Pulse Rate 90 81 Respiratory Rate 16 20 Blood Pressure 159/76 H 168/78 H Pulse Oximetry 99 96 99 03/17/20 08:05 03/17/20 08:06 03/17/20 08:14 Temperature Pulse Rate 84 79 Respiratory Rate 20 20 Blood Pressure Pulse Oximetry 98 Intake/Output Intake/Output: Intake & Output 03/14/20 03/15/20 03/16/20 03/17/20 23:59 23:59
--- NOTE | 2020-03-17 13:43 | PM.DS ---
DS: Admitting Diagnosis Admitting Diagnosis Admitting Diagnosis: diarrhea with dehydration DS: Discharge Diagnosis Discharge Diagnosis (1) Suspected 2019 novel coronavirus infection: Code(s): Z20.822 - Contact with and (suspected) exposure to COVID-19 Status: Acute Assessment and Plan: Continue droplet isolation, Supportive care. COVID-19 results POSITIVE. Dexamethasone continued Oxygen supplementation NOT needed. Bronchodilators prn during her stay antitussives. Mucinex ordered CT of abdomen and pelvis showed moderate amount of lingular groundglass airspace disease suspicious for acute infectious process. (2) Acute on chronic renal failure: Qualifiers: Acute renal failure type: unspecified Chronic kidney disease stage: stage 4 (severe) Qualified Code(s): N17.9 - Acute kidney failure, unspecified; N18.4 - Chronic kidney disease, stage 4 (severe) Code(s): N17.9 - Acute kidney failure, unspecified; N18.9 - Chronic kidney disease, unspecified Status: Acute Assessment and Plan: creat decreased to 1.9 after hydration was 3 on admission (3) Generalized weakness: Code(s): R53.1 - Weakness Status: Acute Assessment and Plan: Appears to be secondary to viral syndrome and also likely dehydration. PT/OT evaluation evaluated (4) Transaminitis: Code(s): R74.01 - Elevation of levels of liver transaminase levels Status: Acute Assessment and Plan: Likely secondary to COVID-19. (5) HTN (hypertension): Qualifiers: Hypertension type: unspecified Qualified Code(s): I10 - Essential (primary) hypertension Code(s): I10 - Essential (primary) hypertension Status: Chronic Assessment and Plan: Medications adjusted during her stay (6) HLD (hyperlipidemia): Qualifiers: Hyperlipidemia type: unspecified Qualified Code(s): E78.5 - Hyperlipidemia, unspecified Code(s): E78.5 - Hyperlipidemia, unspecified Status: Chronic Assessment and Plan: stable. (7) Gout: Qualifiers: Chronicity: chronic Gout etiology: unspecified cause Gout site: unspecified site Presence of tophus: without tophus Qualified Code(s): M1A.9XX0 - Chronic gout, unspecified, without tophus (tophi) Code(s): M10.9 - Gout, unspecified Status: Chronic Assessment and Plan: resumed allopurinol (8) UTI (urinary tract infection): Code(s): N39.0 - Urinary tract infection, site not specified Status: Acute Assessment and Plan: UA positive for UTI uc is negative stop iv rocephin (9) Renal lesion: Code(s): N28.9 - Disorder of kidney and ureter, unspecified Status: Acute Assessment and Plan: CT of abdomen and pelvis completed yesterday showed Moderate bilateral renal atrophy. There is a left renal lesion measuring 5.6 cm, 22 Hounsfield units, could be proteinaceous cyst or solid mass. There is no retroperitoneal lymphadenopathy. IMPRESSION: Indeterminate left renal lesion could be hemorrhagic cyst but nonemergent ultrasound indicated. Bilateral renal ultrasound ordered showed cysts DS: Summary Hospital Course Reason for hospitalization: diarrhea and weakness Hospital Course: Admitted with diarrhea and weakness for [address] A/P showed bilateral ground glass opacities. CXR relatively unremarkable. COVID-19 swab was POSITIVE. Responded well to IVF, Dexamethasone. By discharge she was up and about independently and tolerating diet. Creatinine improved from 3 to 1.9. Status at Discharge Functional status at discharge: independent ambulation Overall status at discharge: patient is progressing back to baseline Time Spent with Patient Time attestation: Total time spent providing and/or coordinating discharge services:35min Exam Narrative: Exam Narrative: NAD Const: General: cooperative, comfortable, no acute distress, alert, awake and confus
== END 2020-03-17 15:18 | disposition home or self-care (01) | DRG 178 ==
LOC: ANHED 19:42 → ANH3MEDSUR 22:01
PROVIDERS: Family Medicine; Internal Medicine Nephrology; Nurse Practitioner; Admitting Provider Family Medicine; Emergency Provider Emergency Medicine; PCP Family Medicine; Visit Provider Internal Medicine
DX: U07.1 COVID-19 (principal); N17.9 Acute kidney failure, unspecified; N18.4 Chronic kidney disease, stage 4 (severe); N39.0 Urinary tract infection, site not specified; I12.9 Hypertensive chronic kidney disease with stage 1 through stage 4 chronic kidney disease, or unspecified chronic kidney disease; R53.1 Weakness; E78.5 Hyperlipidemia, unspecified; M1A.9XX0 Chronic gout, unspecified, without tophus (tophi); R74.01 Elevation of levels of liver transaminase levels; N28.9 Disorder of kidney and ureter, unspecified; Z79.899 Other long term (current) drug therapy
CPT/HCPCS: 36415; 70450; 71045; 74176; 76775; 80048; 80053; 80069; 81001; 82550; 82728; 83615; 83690; 85025; 85610; 86140; 94640; 96360; 96361; 96365; 96366; 96372; 97161; 97165; 99285; A9270; C9803; G0378; J0696; J1650; J7030; J7070; J8540; U0003

== ENCOUNTER 2020-09-15 10:54 | Emergency (ER) | payer MEDICARE, SELFPAY ==
[2020-09-15 11:03] VITALS: BP 154/91; PULSE 92; RESP 18; TEMP 37.6; O2SAT 98
--- NOTE | 2020-09-15 11:40 | ED.URI ---
HPI - URI/Sore Throat General Chief Complaint: Upper Respiratory Infection Stated Complaint: Sore throat Time Seen by Provider: 09/15/20 11:34 Source: patient and RN notes reviewed Mode of arrival: ambulatory Limitations: no limitations History of Present Illness HPI Narrative: Patient presents today complaining of a sore throat with mild cough and left ear pain since yesterday. Currently rates her pain 8/10 and has been using honey without relief. She has been vaccinated against COVID-19. MD elicited complaint: sore throat Related Data Home Medications Medication Instructions Recorded Confirmed amlodipine 5 mg PO DAILY 03/14/20 09/15/20 allopurinol 100 mg PO DAILY 09/15/20 09/15/20 Allergies Allergy/AdvReac Type Severity Reaction Status Date / Time codeine AdvReac Mild DIZZY Verified 09/15/20 11:27 Review of Systems Review of Systems: Narrative: CONSTITUTIONAL: Denies body aches, fever, chills, or sweats. EYES: Denies visual changes, redness, or discharge. ENT: Denies rhinorrhea, congestion. +, Left ear pain CARDIOVASCULAR: Denies chest pain, palpitations, or edema. RESPIRATORY: Denies dyspnea. + Cough GASTROINTESTINAL: Denies abdominal pain, nausea, vomiting, or diarrhea. GENITOURINARY: Denies dysuria or hematuria. SKIN: Denies rash, itching, or wounds. MUSCULOSKELETAL: Denies back pain, joint pain, or myalgia. NEUROLOGIC: Denies headache, numbness, tingling, or weakness. PSYCH: Denies depression or anxiety. [facility] Past Medical History Medical History Chondromalacia patellae, left knee COVID-19 Gout History of adverse reaction to anesthesia HLD (hyperlipidemia) HTN (hypertension) Left knee DJD Osteopenia Right knee DJD Surgical History Surgical History Hx of cholecystectomy Family History Family History Father Diabetes mellitus Social History Social History Smoking status: Never smoker Alcohol intake: never Substance use: never Gender identity (if verbalized by the patient): Female Comments At time of signature, I have reviewed and agree with nursing past medical, surgical, social and family history unless otherwise noted. Please see nursing chart for further information. There is no relevant family history pertinent to the presenting complaint Exam Narrative: Exam Narrative: GENERAL: Well-appearing, well-nourished, and in no acute distress. HEAD: Normocephalic, atraumatic. EYES: EOMI. No redness or drainage. Conjunctivae normal. ENT: Mucous membranes pink and moist. Nares clear. No rhinorrhea. TMs normal bilaterally. Throat erythematous. Uvula midline. NECK: Normal AROM. Supple. No lymphadenopathy. CHEST: No respiratory distress. Clear to auscultation. HEART: Regular rate and rhythm. No murmur appreciated. Normal peripheral pulses. EXTREMITIES: Normal range of motion. No edema. SKIN: Warm, dry, no rash. Capillary refill normal. Normal skin turgor. NEURO: No focal deficits. Alert and oriented x3. Gait steady. PSYCH: Normal affect. No signs of depression or anxiety. Course Vital Signs Vital signs: Vital Signs Temperature 99.6 F 09/15/20 11:03 Pulse Rate 92 09/15/20 11:03 Respiratory Rate 18 09/15/20 11:03 Blood Pressure 154/91 H 09/15/20 11:03 Pulse Oximetry 98 09/15/20 11:03 Temperature 99.6 F 09/15/20 11:03 Pulse Rate 92 09/15/20 11:03 Respiratory Rate 18 09/15/20 11:03 Blood Pressure 154/91 H 09/15/20 11:03 Pulse Oximetry 98 09/15/20 11:03 Reviewed. Pt has been instructed to follow up with her PCP regarding her elevated blood pressure today. MDM - URI/Sore Throat Differential Diagnosis Differential diagnosis: Likely upper respiratory infection, otitis media, sinusitis, viral infection, ph
== END 2020-09-15 11:46 | disposition home or self-care (01) ==
PROVIDERS: Emergency Provider Nurse Practitioner; PCP Family Medicine
DX: J02.0 Streptococcal pharyngitis (principal); Z86.16 Personal history of COVID-19; M10.9 Gout, unspecified; E78.5 Hyperlipidemia, unspecified; I10 Essential (primary) hypertension; M17.0 Bilateral primary osteoarthritis of knee; M22.42 Chondromalacia patellae, left knee
CPT/HCPCS: 87880; 99213; G0463

== ENCOUNTER 2020-11-01 08:11 | Emergency (ER) | payer MEDICARE, SELFPAY ==
[2020-11-01 08:30] VITALS: BP 147/86; PULSE 77; RESP 16; TEMP 36.4; O2SAT 99
--- NOTE | 2020-11-01 08:33 | ED.FEMALEGU ---
HPI - Female Genitourinary General Chief complaint: Urogenital-Female Stated complaint: UTI Time Seen by Provider: 11/01/20 08:30 Source: patient Mode of arrival: ambulatory Limitations: no limitations History of Present Illness HPI Narrative: Dottie Gallardo is a 75 yo female with a PMH of HTN, gout, comes to [facility] with complaints of urinary tract infection such as suprapubic cramping and burning that started this morning Related Data Home Medications Medication Instructions Recorded Confirmed amlodipine 5 mg PO DAILY 03/14/20 11/01/20 allopurinol 100 mg PO DAILY 09/15/20 11/01/20 Allergies Allergy/AdvReac Type Severity Reaction Status Date / Time codeine AdvReac Mild DIZZY Verified 11/01/20 08:32 Review of Systems Review of Systems: CONSTITUTIONAL: Denies fever, chills, sweats. EYES: Denies visual changes, redness, discharge. ENT: Denies rhinorrhea, congestion, sore throat, otalgia. CARDIOVASCULAR: Denies chest pain, palpitations, edema. RESPIRATORY: Denies dyspnea, wheezing, cough GASTROINTESTINAL: Denies abdominal pain, nausea, vomiting, diarrhea. GENITOURINARY: has dysuria, hematuria, abnormal discharge SKIN: Denies rash or itching. NEUROLOGIC: Denies numbness, or focal weakness. PSYCHIATRIC: Denies anxiety or depression. PMFSH Past Medical History Medical History Chondromalacia patellae, left knee COVID-19 Gout History of adverse reaction to anesthesia HLD (hyperlipidemia) HTN (hypertension) Left knee DJD Osteopenia Right knee DJD Surgical History Surgical History Hx of cholecystectomy Family History Family History Father Diabetes mellitus Social History Social History Smoking status: Never smoker Alcohol intake: never Substance use: never Gender identity (if verbalized by the patient): Female Comments At time of signature, I agree with nursing past medical, surgical, social and family history. There is no relevant family history pertinent to the presenting complaint. Exam Narrative: GENERAL: This is a well-nourished, well-developed patient, in mild distress. HEAD: normocephalic, atraumatic. EYES: Sclera clear/white. Vision is grossly intact. EARS: External ears normal, . Hearing grossly intact. NOSE: External nose normal without nasal discharge, nares without redness, no rhinorrhea. THROAT: Mucous membranes moist, NECK: Neck supple, CARDIOVASCULAR: Regular rate and rhythm without murmurs, gallops, or rubs. RESPIRATORY: Clear to auscultation. Breath sounds equal bilaterally. No wheezes, rales, or rhonchi. GASTROINTESTINAL: Abdomen soft, non-tender, SKIN: warm, intact with no suspicious lesions or rash, good texture and turgor. NEURO: awake, alert, and oriented to person, place and time. There were no obvious focal neurologic abnormalities. Steady gait EXTREMITIES: Normal range of motion. BACK: Nontender without deformity Course Course Emergency Course: [facility] of urinary tract symptoms Patient's UA dip shows positive protein positive blood 2+ leukocytes and positive nitrite Started on Keflex, discussed pushing fluids, Tylenol for pain Vital Signs Vital signs: Vital Signs Temperature 97.6 F 11/01/20 08:30 Pulse Rate 77 11/01/20 08:30 Respiratory Rate 16 11/01/20 08:30 Blood Pressure 147/86 H 11/01/20 08:30 Pulse Oximetry 99 11/01/20 08:30 Temperature 97.6 F 11/01/20 08:30 Pulse Rate 77 11/01/20 08:30 Respiratory Rate 16 11/01/20 08:30 Blood Pressure 147/86 H 11/01/20 08:30 Pulse Oximetry 99 11/01/20 08:30 MDM - Female Genitourinary Differential Diagnosis Differential diagnosis: Likely urinary tract infection, vaginitis, cystitis and other Lab Data Labs: Urine
== END 2020-11-01 08:55 | disposition home or self-care (01) ==
PROVIDERS: Emergency Provider Nurse Practitioner; PCP Family Medicine
DX: N30.01 Acute cystitis with hematuria (principal); Z86.16 Personal history of COVID-19; M10.9 Gout, unspecified; E78.5 Hyperlipidemia, unspecified; I10 Essential (primary) hypertension; M81.0 Age-related osteoporosis without current pathological fracture; M85.80 Other specified disorders of bone density and structure, unspecified site; M17.0 Bilateral primary osteoarthritis of knee; M22.42 Chondromalacia patellae, left knee
CPT/HCPCS: 81003; 87086; 87088; 99213; G0463

== ENCOUNTER 2021-01-30 08:41 | Emergency (ER) | payer MEDICARE, SELFPAY ==
--- NOTE | 2021-01-30 08:44 | ED.FEMALEGU ---
HPI - Female Genitourinary General Chief complaint: Urogenital-Female Stated complaint: uti Time Seen by Provider: 01/30/21 09:21 Source: patient and RN notes reviewed Mode of arrival: ambulatory Limitations: no limitations History of Present Illness HPI Narrative: 75-year-old female presents with concern for urinary tract infection. Reports symptoms started this morning with dysuria, frequency, urgency,, low back pain nausea and vomiting. Reports she took Azo today. She denies fever, abdominal pain, body aches, abnormal vaginal discharge or bleeding, back pain. MD elicited complaint: UTI Related Data Home Medications Medication Instructions Recorded Confirmed amlodipine 5 mg PO DAILY 03/14/20 01/30/21 allopurinol 100 mg PO DAILY 09/15/20 01/30/21 ergocalciferol (vitamin D2) 1,250 mcg PO DAILY 01/30/21 01/30/21 Allergies Allergy/AdvReac Type Severity Reaction Status Date / Time codeine AdvReac Mild DIZZY Verified 01/30/21 09:03 Review of Systems Review of Systems: CONSTITUTIONAL: Denies malaise, chills, sweats, or fever. CARDIOVASCULAR: Denies chest pain, palpitations, or edema. RESPIRATORY: Denies cough or dyspnea. GASTROINTESTINAL: Denies abdominal pain, diarrhea. Reports nausea, vomiting GENITOURINARY: Reports dysuria, frequency, urgency. Denies flank pain or hematuria. SKIN: Denies rash or itching. MUSCULOSKELETAL: Reports low back pain. Denies myalgia. All systems reviewed & are unremarkable except as noted in HPI and below PMFSH Past Medical History Medical History Chondromalacia patellae, left knee COVID-19 Gout History of adverse reaction to anesthesia HLD (hyperlipidemia) HTN (hypertension) Left knee DJD Osteopenia Right knee DJD Surgical History Surgical History Hx of cholecystectomy Family History Family History Father Diabetes mellitus Social History Social History Smoking status: Never smoker Alcohol intake: never Substance use: never Gender identity (if verbalized by the patient): Female Comments At time of signature, agree with nursing past medical, surgical, social and family history. There is no relevant family history pertinent to the presenting complaint Exam Narrative: GENERAL: Well-appearing, well-nourished, and in no acute distress. HEAD: Normocephalic. EYES: PERRLA, conjunctivae clear. NECK: Supple. No lymphadenopathy CHEST: Clear to auscultation. No respiratory distress. HEART: Regular rate and rhythm. ABDOMEN: Soft, nontender upon palpation, nondistended, normal active bowel sounds, no palpable or pulsatile masses, no guarding. No CVA tenderness SKIN: Warm, dry, no rash. NEURO: Alert and oriented x3. PSYCH: Normal mood and affect Course Course Emergency Course: Patient given Zofran in this clinic for nausea and dry heaving. Stressed to patient importance of seeking care in the emergency department if symptoms do not improve in the next 1 to 3 days. Patient is aware of diagnosis, understands and agrees to treatment plan. Anticipatory guidance given. Patient agrees to follow-up as directed and is aware of reasons to seek care at the emergency department. Portions of this record may have been created with voice recognition software Vital Signs Vital signs: Vital Signs Temperature 97.3 F L 01/30/21 08:59 Pulse Rate 96 01/30/21 08:59 Respiratory Rate 16 01/30/21 08:59 Blood Pressure 151/89 H 01/30/21 08:59 Pulse Oximetry 99 01/30/21 08:59 Temperature 97.3 F L 01/30/21 08:59 Pulse Rate 96 01/30/21 08:59 Respiratory Rate 16 01/30/21 08:59 Blood Pressure 151/89 H 01/30/21 08:59 Pulse Oximetry 99 01/30/21 08:59 Reviewed. Patient has history of hypertension MDM - Female Genitourinary MDM Narrative Me
[2021-01-30 08:59] VITALS: BP 151/89; PULSE 96; RESP 16; TEMP 36.3; O2SAT 99
[2021-01-30] MEDS: ONDANSETRON HCL ODT 4 MG TABLET SUBLINGUAL (09:31)
== END 2021-01-30 09:55 | disposition home or self-care (01) ==
PROVIDERS: Emergency Provider Nurse Practitioner
DX: R30.0 Dysuria (principal); R35.0 Frequency of micturition; R39.15 Urgency of urination; M54.50 Low back pain, unspecified; R11.2 Nausea with vomiting, unspecified; M10.9 Gout, unspecified; E78.5 Hyperlipidemia, unspecified; I10 Essential (primary) hypertension; M17.0 Bilateral primary osteoarthritis of knee; M85.80 Other specified disorders of bone density and structure, unspecified site; M22.42 Chondromalacia patellae, left knee; Z86.16 Personal history of COVID-19
CPT/HCPCS: 81003; 87077; 87086; 87186; 99213; A9270; G0463

== ENCOUNTER 2021-02-07 14:59 | Emergency (ER) | payer MEDICARE, SELFPAY ==
[2021-02-07 15:16] VITALS: BP 127/74; PULSE 81; RESP 20; TEMP 36.8; O2SAT 99
--- NOTE | 2021-02-07 15:21 | ED.NAVMDI ---
HPI - Nausea/Vomiting/Diarrhea General Chief complaint: Nausea/Vomiting/Diarrhea Stated complaint: Abdominal Pain Time Seen by Provider: 02/07/21 15:22 Source: patient, RN notes reviewed and old records reviewed Mode of arrival: ambulatory Limitations: no limitations History of Present Illness HPI Narrative: 75-year-old female presents to the [facility] with complaints of nausea. Was seen a week ago and diagnosed with a UTI. Prescribed Zofran and Bactrim. Patient states that she only gets upset to her stomach and has not vomited food. Has been taking her Bactrim, has 1 more dose at home. MD elicited complaint: nausea Related Data Home Medications Medication Instructions Recorded Confirmed amlodipine 5 mg PO DAILY 03/14/20 01/30/21 allopurinol 100 mg PO DAILY 09/15/20 01/30/21 ergocalciferol (vitamin D2) 1,250 mcg PO DAILY 01/30/21 01/30/21 Allergies Allergy/AdvReac Type Severity Reaction Status Date / Time codeine AdvReac Mild DIZZY Verified 01/30/21 09:03 Review of Systems Review of Systems: All systems reviewed & are unremarkable except as noted in HPI and below Constitutional: Constitutional: Reports no additional constitutional complaints, Denies chills and Denies fever(s) Eyes: Eyes: Reports no additional eye complaints ENT: Reports system reviewed and no additional complaints, except as documented Cardiovascular: Cardiovascular: Reports no additional cardiovascular complaints, Denies chest pain, Denies rapid heart rate and Denies radiating jaw, neck or arm pain Respiratory: Respiratory: Reports no additional respiratory complaints, Denies cough and Denies dyspnea Gastrointestinal: Gastrointestinal: Reports as per HPI, Denies abdominal pain, Denies constipation, Denies diarrhea, Reports nausea and Denies vomiting Genitourinary: Genitourinary: Reports no additional female genitourinary complaints, Denies nocturia, Denies dysuria and Denies flank pain Musculoskeletal: Musculoskeletal: Reports no additional musculoskeletal complaints and Denies back pain Integumentary/Breasts: Skin/Breast: Reports system reviewed and no additional complaints, except as docu Neurologic: Reports system reviewed and no additional complaints, except as documented Psychiatric: Psychiatric: Reports no additional psychiatric complaints Allergic/Immunologic: Allergic/Immunologic: Reports no additional allergic/immunologic complaints PMFSH Past Medical History Medical History Chondromalacia patellae, left knee COVID-19 Gout History of adverse reaction to anesthesia HLD (hyperlipidemia) HTN (hypertension) Left knee DJD Osteopenia Right knee DJD Surgical History Surgical History Hx of cholecystectomy Family History Family History Father Diabetes mellitus Social History Social History Smoking status: Never smoker Alcohol intake: never Substance use: never Gender identity (if verbalized by the patient): Female Comments At the time of my signature, I reviewed and agree with the nursing past medical, surgical, social, and family history. There is no relevant family history pertinent to the patient complaint. Exam Const: General: healthy appearing, no acute distress and alert Nutritional Appearance: well nourished Orientation/consciousness: patient oriented x3 Limitations: no limitations HENMT: Head: normal to inspection Ears: external ears normal, TM's normal bilaterally and EAC's normal Eyes: Pupils: Equal, round and reactive pupils present EOM: EOMs intact bilaterally Direct Ophthalmoscopy: no photophobia Neck: Neck: normal visual inspection, no lymphadenopathy and no meningeal signs Chest: Chest palpation & inspection: normal inspection of the chest Resp: Effort & Inspection: normal respiratory effort and n
== END 2021-02-07 15:48 | disposition home or self-care (01) ==
PROVIDERS: Emergency Provider Nurse Practitioner; PCP Family Medicine
DX: R11.0 Nausea (principal); I10 Essential (primary) hypertension; E78.5 Hyperlipidemia, unspecified
CPT/HCPCS: 99211; G0463

== ENCOUNTER 2021-12-17 14:15 | Emergency (ER) | payer MEDICARE, SELFPAY ==
[2021-12-17 14:25] VITALS: BP 135/65; PULSE 64; RESP 18; TEMP 36.3; O2SAT 100
--- NOTE | 2021-12-17 15:20 | ED.FEMALEGU ---
HPI - Female Genitourinary General Chief complaint: Urogenital-Female Stated complaint: possible uti Time Seen by Provider: 12/17/21 15:15 Source: patient, RN notes reviewed and old records reviewed Mode of arrival: ambulatory Limitations: no limitations History of Present Illness HPI Narrative: 76-year-old female presents to [facility] with complaints of 1 week duration of pain and burning with urination. Patient states that she has been drinking cranberry juice and she is also been taking cranberry pills for her symptoms. Patient states that she has no back pain no lower abdominal pain but does admit to some perineal discomfort. Patient states that she has not had any fever chills or sweats denies any nausea or vomiting or any decrease in appetite MD elicited complaint: other (UTI) Pertinent past history: recurrent UTIs Onset (ago): week(s) (1) Severity scale (1-10): 6 Related Data Home Medications Medication Instructions Recorded Confirmed amlodipine 5 mg tablet 5 mg PO DAILY 03/14/20 12/17/21 allopurinol 100 mg tablet 100 mg PO DAILY 09/15/20 12/17/21 ergocalciferol (vitamin D2) 1,250 1,250 mcg PO DAILY 01/30/21 12/17/21 mcg (50,000 unit) capsule Allergies Allergy/AdvReac Type Severity Reaction Status Date / Time codeine AdvReac Mild DIZZY Verified 12/17/21 14:31 Review of Systems Review of Systems: on G give CONSTITUTIONAL: Denies fever, chills, or sweats. EYES: Denies visual changes, redness, or discharge. ENT: Denies rhinorrhea, congestion, sore throat, or otalgia. CARDIOVASCULAR: Denies chest pain, palpitations, or edema. RESPIRATORY: Denies cough or dyspnea. GASTROINTESTINAL: Denies abdominal pain, nausea, vomiting, or diarrhea. GENITOURINARY: Positive for dysuria no hematuria. SKIN: Denies rash or itching. MUSCULOSKELETAL: Denies back pain, joint pain, or myalgia. NEUROLOGIC: Denies headache, numbness, or weakness. PSYCHIATRIC: Denies anxiety or depression. All systems reviewed & are unremarkable except as noted in HPI and below PMFSH Past Medical History Medical History Chondromalacia patellae, left knee COVID-19 Gout History of adverse reaction to anesthesia HLD (hyperlipidemia) HTN (hypertension) Left knee DJD Osteopenia Right knee DJD Surgical History Surgical History Hx of cholecystectomy Family History Family History Father Diabetes mellitus Social History Social History Smoking status: Never smoker Alcohol intake: never Substance use: never Gender identity (if verbalized by the patient): Female Comments At time of signature, agree with nursing past medical, surgical, social and family history. There is no relevant family history pertinent to the presenting complaint Exam Narrative: GENERAL: Well-appearing, well-nourished, and in no acute distress. HEAD: Normocephalic, atraumatic. EYES: PERRLA and EOMI. ENT: Nares clear, no rhinorrhea or epistaxis. Mucous membranes moist. TM's normal, throat pink with no lesions or swelling NECK: Supple. no lymphadenopathy CHEST: Clear to auscultation. No respiratory distress. SAO2 100% on room air HEART: Regular rate and rhythm. No murmur heard. Normal peripheral pulses. ABDOMEN: Soft, nontender, nondistended, normal active bowel sounds.reports perineal pressure, denies any CVA tenderness on exam EXTREMITIES: Normal range of motion. No edema. SKIN: Warm, dry, no rash. NEURO: No focal deficits. Alert and oriented x3. Course Course Emergency Course: Patient is aware of diagnosis, understands and agrees to treatment plan.? Anticipatory guidance given.? Patient agrees to follow-up as directed and is aware of reasons to seek care at the emergency department. Portions of this record may have been created with voice bernice
== END 2021-12-17 15:40 | disposition home or self-care (01) ==
PROVIDERS: Emergency Provider Registered Nurse; PCP Family Medicine
DX: N39.0 Urinary tract infection, site not specified (principal); M10.9 Gout, unspecified; E78.5 Hyperlipidemia, unspecified; I10 Essential (primary) hypertension; M17.0 Bilateral primary osteoarthritis of knee; M85.80 Other specified disorders of bone density and structure, unspecified site; M22.42 Chondromalacia patellae, left knee; Z86.16 Personal history of COVID-19
CPT/HCPCS: 81003; 87077; 87086; 87186; 99213; G0463

== ENCOUNTER 2022-05-12 13:50 | Emergency (ER) | payer MEDICARE, SELFPAY ==
--- NOTE | 2022-05-12 13:54 | PC.NURSE ---
family states she is going to take pt somewhere else since she will have a wait time here.
== END 2022-05-12 14:12 | disposition left against medical advice (07) ==
PROVIDERS: PCP Family Medicine
DX: Z53.21 Procedure and treatment not carried out due to patient leaving prior to being seen by health care provider (principal)
CPT/HCPCS: 99199

== ENCOUNTER 2022-06-09 12:13 | Emergency (ER) | payer MEDICARE, SELFPAY ==
--- NOTE | ~2022-06-09 | CT_ITS ---
EXAMINATION: CT thoracic lumbar wo con DATE: 06/09/2022 14:30 INDICATION: Midline back pain and paraspinal pain. TECHNIQUE: Computed tomography (CT) of the thoracic spine and lumbar spine was performed without intr avenous contrast. Automated exposure control and iterative reconstruction technique were employed. Th e dose-length product was 392.96 mGy-cm. COMPARISON: CT lumbar spine 03/12/12, CT abdomen and pelvis 03/14/20 FINDINGS: CT THORACIC SPINE: There is a 13 mm nodule in right thyroid lobe, likely not clinically significant. There are changes of cholecystectomy. There is a 6.8 cm cyst in left kidney. There is 7 degrees dextr ocurvature of thoracic spine. There is a hemangioma in T7 vertebral body. There is severely decreased disc height anteriorly at T5-T6 and T6-T7. There is mildly decreased disc height at T7-T8 and T8-T9. There are endplate erosions at T8-T9 that are new from 03/12/2022. There is multilevel mild facet join t osteoarthritis. No central canal stenosis or neural foraminal stenosis. CT LUMBAR SPINE: There is 9 degrees levocurvature of lumbar spine. Vertebral body heights are normal. There is moderately decreased disc height at L3-L4, mildly decreased disc height at L4-L5, and sever susana decreased disc height at L5-S1 with endplate remodeling. The following disc levels are specifical ly discussed: L1-L2: The disc does not extend beyond the endplate margin. There is mild bilateral facet joint osteo arthritis. There is no neural foraminal stenosis. There is no central canal stenosis. L2-L3: The disc is bulging. There is mild bilateral facet joint osteoarthritis. There is mild bilater al neural foraminal stenosis. There is mild central canal stenosis. L3-L4: The disc is bulging. There is moderate bilateral facet joint osteoarthritis. There is moderate right and mild left neural foraminal stenosis. There is mild central canal stenosis. L4-L5: The disc is bulging. There is severe bilateral facet joint osteoarthritis. There is mild bilat eral neural foraminal stenosis. There is mild central canal stenosis. L5-S1: The disc is bulging. There is severe bilateral facet joint osteoarthritis. There is moderate b ilateral neural foraminal stenosis. There is mild central canal stenosis. IMPRESSION: 1. Endplate erosions at T8-T9, new from 03/12/12, consistent with discitis. 2. Moderate thoracic and lumbar spondylosis. Reviewed, dictated and finalized at location A.
[2022-06-09 12:58] VITALS: BP 130/66; PULSE 96; RESP 16; TEMP 36.9; O2SAT 99
--- NOTE | 2022-06-09 13:03 | ECG_ITS ---
Measurements Intervals Woody Rate: 94 P: 43 MD: 152 QRS: -41 QRSD: 82 T: 47 QT: 320 QTc: 402 Interpretive Statements SINUS RHYTHM MARKED LEFT AXIS DEVIATION [QRS AXIS < -30] NO PREVIOUS ECG AVAILABLE FOR COMPARISON Electronically Signed On 06-10-2022 14:57:53 CDT by Maricruz Trujillo M.D.
[2022-06-09 13:17] VITALS: BP 124/72; PULSE 96; RESP 18; TEMP 36.6; O2SAT 98
--- NOTE | 2022-06-09 13:36 | ED.BACK ---
HPI - Back Pain/Injury General Chief Complaint: Back Pain/Injury Stated Complaint: back pain Time Seen by Provider: 06/09/22 13:19 History of Present Illness HPI Narrative: This is a 76-year-old female with PMH of MAXX, osteoarthritis, DDD presents to the ED with chief complaint of back pain x1 month and increased weakness and falls. Apparently she has had many falls recently. Was admitted about a month ago for an MAXX and back pain and dehydration. Patient states that the pain has been increasing with no relief of tramadol at home. Denies fevers, chills, nausea, vomiting. Denies any focal weakness of the lower extremity or sensation change. States she feels globally weak. Related Data Home Medications Medication Instructions Recorded Confirmed amlodipine 5 mg tablet 5 mg PO DAILY 03/14/20 12/17/21 allopurinol 100 mg tablet 100 mg PO DAILY 09/15/20 12/17/21 ergocalciferol (vitamin D2) 1,250 1,250 mcg PO DAILY 01/30/21 12/17/21 mcg (50,000 unit) capsule Allergies Allergy/AdvReac Type Severity Reaction Status Date / Time codeine AdvReac Mild DIZZY Verified 06/09/22 13:22 Review of Systems Review of Systems: CONSTITUTIONAL: Denies fever, chills, or sweats. EYES: Denies visual changes, redness, or discharge. ENT: Denies rhinorrhea, congestion, sore throat, or otalgia. CARDIOVASCULAR: Denies chest pain, palpitations, or edema. RESPIRATORY: Denies cough or dyspnea. GASTROINTESTINAL: Denies abdominal pain, nausea, vomiting, or diarrhea. GENITOURINARY: Denies dysuria or hematuria. SKIN: Denies rash or itching. MUSCULOSKELETAL: Endorses back pain. Denies neck pain, joint pain, or myalgia. NEUROLOGIC: Denies headache, numbness, dizziness, or weakness. PSYCHIATRIC: Denies anxiety or depression. [facility] Past Medical History Medical History Chondromalacia patellae, left knee COVID-19 Gout History of adverse reaction to anesthesia HLD (hyperlipidemia) HTN (hypertension) Left knee DJD Osteopenia Right knee DJD Surgical History Surgical History Hx of cholecystectomy Family History Family History Father Diabetes mellitus Social History Social History Smoking status: Never smoker Alcohol intake: never Substance use: never Gender identity (if verbalized by the patient): Female Exam Narrative: GENERAL: Well-appearing, well-nourished, and in no acute distress. Presents in wheelchair for mobility HEAD: Normocephalic, atraumatic. EYES: PERRLA and EOMI. ENT: Nares clear, no rhinorrhea or epistaxis. Mucous membranes moist. Oropharynx without tonsillar hypertrophy exudate or other lesions. NECK: Supple. No adenopathy or masses. CHEST: No respiratory distress. Clear to auscultation. No wheezes rales or rhonchi HEART: Regular rate and rhythm. No murmur heard. Normal peripheral pulses. ABDOMEN: Soft, nontender, nondistended, normal active bowel sounds. EXTREMITIES: Midline thoracic back tenderness. With paraspinal lumbar tenderness. MSK exam is otherwise benign. Normal range of motion. No edema. SKIN: Warm, dry, no rash. NEURO: Alert and oriented x3. No focal deficits. PSYCH: Normal mood and affect. Course Course Emergency Course: Discussed case with [facility] and Dr. Knight and Dr. Motta, orthopedics and IM respectively. Internal medicine will admit the patient with ortho spine consult. Vital Signs Vital signs: Vital Signs Temperature 98.5 F 06/09/22 12:58 Pulse Rate 96 06/09/22 12:58 Respiratory Rate 16 06/09/22 12:58 Blood Pressure 130/66 06/09/22 12:58 Pulse Oximetry 99 06/09/22 12:58 Oxygen Delivery Room Air 06/09/22 12:58 Temperature 97.9 F 06/09/22 13:17 Pulse Rate 110 H 06/09/22 16:59 Respiratory Rate 18 06/09/22 16:59 Blood Pressure 134/83
[2022-06-09 14:07] LABS: Basophils Absolute Auto 0.1 K/mm3 (0.0-0.1); Basophils Percent Auto 0.8 % (0.2-1.2); Eosinophils Absolute Auto 0.1 K/mm3 (0-0.3); Eosinophils Percent Auto 0.5 % (0-4.4); Hematocrit 29.8 % (37.0-47.0); Hemoglobin 9.2 g/dL (12.0-15.0); Immature Granulocyte Percent A 1.6 % (0-0.5); Lymphocytes Absolute Auto 1.27 K/mm3 (0.9-3.2); Lymphocytes Percent Auto 9.9 % (18.3-44.2); Mean Corpuscular HGB Conc 30.9 g/dl (32-36); Mean Corpuscular Hemoglobin 30.1 pg (26-34); Mean Corpuscular Volume 97.4 fl (80-100); Mean Platelet Volume 9.3 fl (7.4-10.4); Monocytes Absolute Auto 1.4 K/mm3 (0.1-0.6); Monocytes Percent Auto 10.9 % (2.6-8.5); Neutrophils Absolute Auto 9.7 K/mm3 (1.3-6.7); Neutrophils Percent Auto 76.3 % (45.5-73.1); Platelet Count Result 332 k/mm3 (150-375); Red Blood Count 3.06 M/mm3 (4.2-5.4); Red Cell Distribution Width 14.6 % (11.5-14.5); White Blood Count 12.8 K/mm3 (4.5-10.0)
[2022-06-09 14:09] LABS: Appearance Urine Clear (Clear); Bacteria Urine None Seen /hpf; Bilirubin Urine Negative (Negative); Blood Urine Trace (Negative); Color Urine Yellow (Yellow); Glucose Urine UA Negative (Negative); Ketones Urine Negative (Negative); Leukocyte Esterase Ur Negative LEU/UL (Negative); Nitrate Urine Negative (Negative); Non Pathogenic Casts 0-2; Protein Urine 1+ mg/dL (Negative); RBC Urine 0-2 /hpf (0-2); Specific Grav Ur 1.011 (1.001-1.035); Squamous Epithelial Cell Urine None seen /hpf (Few); Urobilinogen Urine 0.2 mg/dL (<2.0); WBC Urine 0-5 /hpf
[2022-06-09 14:13] LABS: Add Urine Microscopic? YES
[2022-06-09 14:16] LABS: Alanine Aminotransferase 14 U/L (6-35); Alkaline Phosphatase 148 U/L (38-126); Anion Gap 11 mmol/L (8-16); Aspartate Amino Transferase 23 U/L (14-36); Bilirubin,Total 0.4 mg/dL (0.2-1.3); Blood Urea Nitrogen 56 mg/dL (7-17); Calcium 8.6 mg/dL (8.4-10.2); Carbon Dioxide 17 mmol/L (22-30); Chloride 108 mmol/L (98-107); Estimated CRCL calculation 10 ml/min; Estimated Glomerular Filt Rate 15; Glucose 109 mg/dL (65-110); Potassium 5.1 mmol/L (3.4-5.0); Sodium 136 mmol/L (137-145)
--- NOTE | 2022-06-09 15:43 | PC.NURSE ---
pt accepted at [facility] - placed on waitlist for bed
--- NOTE | 2022-06-09 16:12 | PC.NURSE ---
accepted to [facility] 252 Report to [phone] duarte
--- NOTE | 2022-06-09 16:31 | PC.NURSE ---
1618 [facility] declined BLS transfer to [facility] 16[facility] House BLS [facility] #11 on list [facility] accepted BLS transfer to [facility] waiting on ETA
[2022-06-09 16:59] VITALS: BP 134/83; PULSE 110; RESP 18; O2SAT 98
[2022-06-09 17:12] LABS: Erythrocyte Sedimentation Rate 73 mm/hr (0-20)
--- NOTE | 2022-06-09 19:52 | PC.NURSE ---
@1940 [facility] called to decline transport - too busy called [facility] to request transport. ETA 2100
--- NOTE | 2022-06-09 20:32 | PC.NURSE ---
[facility] here.
[2022-06-09 20:37] VITALS: BP 130/76; PULSE 93; RESP 16; O2SAT 100; O2SAT 96
== END 2022-06-09 20:40 | disposition short-term general hospital (02) ==
PROVIDERS: Emergency Medicine; Emergency Provider Physician Assistant; PCP Family Medicine
DX: M46.44 Discitis, unspecified, thoracic region (principal); M47.814 Spondylosis without myelopathy or radiculopathy, thoracic region; I10 Essential (primary) hypertension; E78.5 Hyperlipidemia, unspecified; M19.90 Unspecified osteoarthritis, unspecified site; M10.9 Gout, unspecified; M17.0 Bilateral primary osteoarthritis of knee; M85.80 Other specified disorders of bone density and structure, unspecified site; Z86.16 Personal history of COVID-19
CPT/HCPCS: 36415; 72128; 72131; 80053; 81001; 85025; 85652; 86140; 93005; 96365; 99285; J0131

== ENCOUNTER 2022-09-23 08:24 | Outpatient (CLI) | payer MEDICARE, SELFPAY ==
--- NOTE | ~2022-09-23 | CT_ITS ---
Noncontrast CT scan of the thoracic spine CLINICAL HISTORY: Discitis TECHNIQUE: Axial noncontrast imaging of the thoracic spine was performed. Sagittal and coronal reform atted images were constructed. Dose reduction technique was used on this scan by utilizing automated exposure control and iterative reconstruction technique. The dose-length product (DLP) was 342.38 mGy -cm. COMPARISON: 06/09/2022 FINDINGS: Erosive changes of the endplates about the T8-T9 disc space are again present, similar in s ize and extent to prior exam. There is mild increase amorphous sclerosis in the surrounding T8 and T9 vertebral bodies. No other significant osseous abnormality seen. T7 intraosseous hemangioma is uncha nged. No other erosive changes identified. Remaining intervertebral disc spaces are well preserved. N o acute fracture or subluxation seen otherwise. No definite disc bulge or herniation seen. No definite spinal canal stenosis or cord compression seen . Paravertebral soft tissues are grossly unremarkable. Bilateral renal cysts are unchanged. Impression: Erosive changes about the T8-T9 disc space are again consistent with discitis. There is mild increase d amorphous sclerosis about the erosive changes as compared to prior exam, otherwise no significant i nterval change identified. Reviewed, dictated and finalized at location M. Impression: Erosive changes about the T8-T9 disc space are again consistent with discitis. There is mild increased amorphous sclerosis about the erosive changes as compar ed to prior exam, otherwise no significant interval change identified.
== END 2022-09-23 08:25 | disposition home or self-care (01) ==
PROVIDERS: PCP Family Medicine; Visit Provider Family Medicine
DX: M46.44 Discitis, unspecified, thoracic region (principal)
CPT/HCPCS: 72128

== ENCOUNTER 2023-05-22 15:02 | Emergency (ER) | payer MEDICARE, SELFPAY ==
--- NOTE | 2023-05-22 15:31 | PC.NURSE ---
UA GLUCOSE: NEG BILIRUBIN: NEG KETONE: NEG SPECIFIC GRAVITY: 1.010 BLOOD: 2+ PH: 6.5 PROTEIN: TRACE UROBILINOGEN: 0.2 NITRATE: NEG LEUKOCYTE: 3+ URINE CULTURE: AUGMENTIN
--- NOTE | 2023-05-22 16:13 | PC.NURSE ---
PT RETURNED WITH RASH/HIVES ON HER LEFT CLAVICLE. NO RESP DISTRESS. SHE DID TAKE AN INITIAL DOES OF BACTRIM THIS MORNING. [employer] MADE AWARE. INSTRUCTED PT ON TAKING BENADRYL FOR ALLERGIC REACTION. NEW RX FOR AUGMENTIN 875/125MG PO BID FOR 7 DAYS CALLED TO [facility] ON [address], [place]. PT AWARE TO STOP BACTRIM, TAKE BENADRYL FOR ALLERGIC REACTION AND TO START AUGMENTIN DIRECTED. INSTRUCTED TO FOLLOW UP WITH PCP/CALL 911 OR GO TO THE ED FOR WORSENING OR CONCERNS. PT AND VERBALIZED UNDERSTANDING.
== END 2023-05-22 16:13 | disposition home or self-care (01) ==
PROVIDERS: Emergency Provider Nurse Practitioner Family; PCP Family Medicine
DX: N39.0 Urinary tract infection, site not specified (principal); R31.9 Hematuria, unspecified; I10 Essential (primary) hypertension
CPT/HCPCS: 81003; 87086; 87088; 99213; G0463

== ENCOUNTER 2023-08-11 19:19 | Emergency (ER) | payer MEDICARE, SELFPAY ==
--- NOTE | 2023-08-11 19:28 | ED.FEMALEGU ---
HPI - Female Genitourinary General Chief complaint: Urogenital-Female Stated complaint: urinary issue Time Seen by Provider: 08/11/23 19:30 Source: patient, RN notes reviewed and old records reviewed Mode of arrival: ambulatory Limitations: no limitations History of Present Illness HPI Narrative: 78-year-old female presents to the [facility] with concerns for a UTI. Patient presents with 2-1/2 hours of urinary frequency burning and urgency. Patient denies any abdominal pain. Denies nausea or vomiting. Denies fevers. HX of UTI, stage 4 kidney disease Onset (ago): hour(s) (2.5) Related Data Home Medications Medication Instructions Recorded Confirmed amlodipine 5 mg tablet 5 mg PO DAILY 03/14/20 08/11/23 ergocalciferol (vitamin D2) 1,250 1,250 mcg PO DAILY 01/30/21 08/11/23 mcg (50,000 unit) capsule gabapentin 100 mg capsule 200 mg PO QHS 07/07/22 08/11/23 gabapentin 400 mg capsule 400 mg PO TID 07/07/22 08/11/23 polyethylene glycol 3350 17 17 g PO DAILY 07/07/22 08/11/23 gram/dose oral powder sodium bicarbonate 650 mg tablet 650 mg PO BID 07/07/22 08/11/23 tramadol 50 mg tablet 50 mg PO Q6H PRN Pain 07/07/22 08/11/23 calcium carbonate (Tums) 200 mg PO DAILY 02/19/23 08/11/23 Allergies Allergy/AdvReac Type Severity Reaction Status Date / Time sulfamethoxazole Allergy Hives Verified 08/11/23 19:25 [From Bactrim] trimethoprim [From Bactrim] Allergy Hives Verified 08/11/23 19:25 codeine AdvReac Mild DIZZY Verified 08/11/23 19:25 Review of Systems Review of Systems: All systems reviewed & are unremarkable except as noted in HPI and below Constitutional: Constitutional: Reports no additional constitutional complaints Eyes: Eyes: Reports no additional eye complaints ENT: Reports system reviewed and no additional complaints, except as documented Cardiovascular: Cardiovascular: Reports no additional cardiovascular complaints, Denies chest pain and Denies dyspnea Respiratory: Respiratory: Reports no additional respiratory complaints, Denies chest congestion, Denies cough and Denies dyspnea Gastrointestinal: Gastrointestinal: Reports no additional gastrointestinal complaints, Denies abdominal pain, Denies nausea and Denies vomiting Genitourinary: Genitourinary: Reports as per HPI Musculoskeletal: Musculoskeletal: Reports no additional musculoskeletal complaints Integumentary/Breasts: Skin/Breast: Reports system reviewed and no additional complaints, except as docu Neurologic: Reports system reviewed and no additional complaints, except as documented Psychiatric: Psychiatric: Reports no additional psychiatric complaints Allergic/Immunologic: Allergic/Immunologic: Reports no additional allergic/immunologic complaints PMFSH Past Medical History Medical History Chondromalacia patellae, left knee CKD (chronic kidney disease) COVID-19 Gout History of adverse reaction to anesthesia HLD (hyperlipidemia) HTN (hypertension) Left knee DJD Osteopenia Right knee DJD Surgical History Surgical History Hx of cholecystectomy Family History Family History Father Diabetes mellitus Mother Kidney disease Social History Social History Smoking status: Never smoker Alcohol intake: never Substance use: never Lack of Transportation: No Lack of Food: Never True Current Housing: I Have Housing Concerned About Future Housing: No Difficulty Paying Gas/Electric Bills: No Difficulty Paying for Meds: No Currently Unemployed: No Education: Grade School Living arrangements: with family Gender identity (if verbalized by the patient): Female Comments At the time of my signature, I reviewed and agree with the nursing past medical, surgical, social, and family history. There is
[2023-08-11 19:29] VITALS: BP 135/79; PULSE 89; RESP 18; TEMP 36.8; O2SAT 98
== END 2023-08-11 19:45 | disposition home or self-care (01) ==
PROVIDERS: Emergency Provider Nurse Practitioner; PCP Nurse Practitioner Family
DX: N39.0 Urinary tract infection, site not specified (principal); I12.9 Hypertensive chronic kidney disease with stage 1 through stage 4 chronic kidney disease, or unspecified chronic kidney disease; N18.9 Chronic kidney disease, unspecified; M10.9 Gout, unspecified; E78.5 Hyperlipidemia, unspecified; M17.0 Bilateral primary osteoarthritis of knee; M85.80 Other specified disorders of bone density and structure, unspecified site; Z86.16 Personal history of COVID-19
CPT/HCPCS: 81003; 87086; 87088; 99213; G0463

== ENCOUNTER 2023-10-10 15:42 | Emergency (ER) | payer MEDICARE, SELFPAY ==
--- NOTE | 2023-10-10 15:59 | ED.DIZZY ---
HPI - Dizziness General Chief Complaint: Dizziness Stated Complaint: Dizziness Time Seen by Provider: 10/10/23 16:04 Source: patient and RN notes reviewed Mode of arrival: ambulatory Limitations: no limitations History of Present Illness HPI Narrative: 78-year-old female with history of hypertension and CKD presented for complaint of dizziness for 3 days. She endorses decreased water intake for several days because she ran out of bottled water and does not drink tap water. Says dizziness is worse when changing positions especially getting up from a seated or lying position. Denies room spinning, states she feels off balance. Denies any associated headache, vision changes, chest pain or palpitations, nausea, vomiting, diarrhea, fevers or chills. Has continued to take her BP medication. Related Data Home Medications Medication Instructions Recorded Confirmed amlodipine 5 mg tablet 5 mg PO DAILY 03/14/20 08/11/23 ergocalciferol (vitamin D2) 1,250 1,250 mcg PO DAILY 01/30/21 08/11/23 mcg (50,000 unit) capsule gabapentin 100 mg capsule 200 mg PO QHS 07/07/22 08/11/23 gabapentin 400 mg capsule 400 mg PO TID 07/07/22 08/11/23 polyethylene glycol 3350 17 17 g PO DAILY 07/07/22 08/11/23 gram/dose oral powder sodium bicarbonate 650 mg tablet 650 mg PO BID 07/07/22 08/11/23 tramadol 50 mg tablet 50 mg PO Q6H PRN Pain 07/07/22 08/11/23 calcium carbonate (Tums) 200 mg PO DAILY 02/19/23 08/11/23 Allergies Allergy/AdvReac Type Severity Reaction Status Date / Time sulfamethoxazole Allergy Hives Verified 10/10/23 15:52 [From Bactrim] trimethoprim [From Bactrim] Allergy Hives Verified 10/10/23 15:52 codeine AdvReac Mild DIZZY Verified 10/10/23 15:52 Review of Systems Review of Systems: CONSTITUTIONAL: Denies body aches, fever, chills, or sweats. EYES: Denies visual changes, redness, or discharge. ENT: Denies rhinorrhea, congestion, sore throat, or otalgia. CARDIOVASCULAR: Denies chest pain, palpitations, or edema. RESPIRATORY: Denies cough or dyspnea. GASTROINTESTINAL: Denies abdominal pain, nausea, vomiting, or diarrhea. GENITOURINARY: Denies dysuria or hematuria. SKIN: Denies rash, itching, or wounds. MUSCULOSKELETAL: Denies back pain, joint pain, or myalgia. NEUROLOGIC: Endorses dizziness denies headache, numbness, tingling, or weakness All systems reviewed & are unremarkable except as noted in HPI and below PMFSH Past Medical History Medical History Chondromalacia patellae, left knee CKD (chronic kidney disease) COVID-19 Gout History of adverse reaction to anesthesia HLD (hyperlipidemia) HTN (hypertension) Left knee DJD Osteopenia Right knee DJD Surgical History Surgical History Hx of cholecystectomy Family History Family History Father Diabetes mellitus Mother Kidney disease Social History Social History Smoking status: Never smoker Alcohol intake: never Substance use: never Lack of Transportation: No Lack of Food: Never True Current Housing: I Have Housing Concerned About Future Housing: No Difficulty Paying Gas/Electric Bills: No Difficulty Paying for Meds: No Currently Unemployed: No Education: Grade School Living arrangements: with family Gender identity (if verbalized by the patient): Female Comments At time of signature, I have reviewed and agree with nursing past medical, surgical, social and family history unless otherwise noted. Please see nursing chart for further information. There is no relevant family history pertinent to the presenting complaint Exam Narrative: GENERAL: Well-appearing HEAD: Normocephalic, atraumatic. EYES: PERRLA, EOMI. ENT: Mucous membranes pink and moist. No rhinorrhea. TMs normal bilaterally.
[2023-10-10 16:00] VITALS: BP 135/80; PULSE 90; RESP 12; TEMP 36.8; O2SAT 100
--- NOTE | 2023-10-10 17:30 | ECG_ITS ---
Test Date: 2023-10-10 17:00:32 Measurements Intervals [place] Rate: 70 P: 49 MN: 168 QRS: -32 QRSD: 88 T: 52 QT: 389 QTc: 420 Interpretive Statements SINUS RHYTHM MARKED LEFT AXIS DEVIATION [QRS AXIS < -30] ABNORMAL ECG Compared to ECG 10/10/2023 16:00:36 No significant changes Electronically Signed On 10-11-2023 08:56:48 CDT by Froy Morrison M.D.
== END 2023-10-10 16:30 | disposition short-term general hospital (02) ==
PROVIDERS: Emergency Provider Nurse Practitioner Family; PCP Nurse Practitioner Family
DX: R42 Dizziness and giddiness (principal); I12.9 Hypertensive chronic kidney disease with stage 1 through stage 4 chronic kidney disease, or unspecified chronic kidney disease; N18.9 Chronic kidney disease, unspecified; M10.9 Gout, unspecified; E78.5 Hyperlipidemia, unspecified; M17.0 Bilateral primary osteoarthritis of knee; M85.80 Other specified disorders of bone density and structure, unspecified site; Z86.16 Personal history of COVID-19
CPT/HCPCS: 93005; 99213; G0463

== ENCOUNTER 2023-10-10 16:46 | Emergency (ER) | payer MEDICARE, SELFPAY ==
[2023-10-10] VITALS (19 sets, daily range): BP systolic 129–147; BP diastolic 67–81; PULSE 63–81; RESP 10–18; TEMP 36.3–37.1; O2SAT 97–100
--- NOTE | ~2023-10-10 | XR_ITS ---
XR chest 2V DATE: 10/10/2023 18:16 INDICATION: Dizziness TECHNIQUE: AP and lateral views COMPARISON: 03/16/2020 portable AP chest FINDINGS: No pulmonary infiltrate or consolidation, pulmonary vascular congestion or pleural effusion or pneumothorax. Heart size within normal range. Aortic arch calcification. Diffuse osteopenia. Thoracic dextroscoliosis. Surgical clips, right upper quadrant, consistent with cholecystectomy. IMPRESSION: No active cardiopulmonary disease Aortic atherosclerosis Reviewed, dictated and finalized at location [facility].
--- NOTE | ~2023-10-10 | CT_ITS ---
EXAMINATION: CT brain wo con DATE: 10/10/2023 18:07 INDICATION: Dizziness TECHNIQUE: Computed tomography (CT) of the head was performed without intravenous contrast. The mA wa s adjusted according to patient size. Iterative reconstruction technique was employed. Exam dose: 52 9.67 mGy-cm total exam DLP. COMPARISON: 03/14/2020 CT head FINDINGS: Bilateral carotid siphon internal carotid artery calcifications. No intracranial mass lesion or hemorrhage or cerebrovascular accident, midline shift or mass effect. No subdural or epidural hematoma. No fracture or bone destruction of the cranial vault. IMPRESSION: No acute intracranial finding Reviewed, dictated and finalized at [facility]. Reviewed, dictated and finalized at location J.
--- NOTE | 2023-10-10 16:50 | ECG_ITS ---
Test Date: 2023-10-10 16:00:36 Measurements Intervals [place] Rate: 70 P: 49 VT: 175 QRS: -18 QRSD: 85 T: 31 QT: 395 QTc: 428 Interpretive Statements SINUS RHYTHM LOW-VOLTAGE QRS BORDERLINE LEFTWARD AXIS ABNORMAL ECG No previous ECG available for comparison Electronically Signed On 10-11-2023 08:55:28 CDT by Froy Morrison M.D.
[2023-10-10 17:20] LABS: Basophils Percent Auto 0.5 % (0.2-1.2); Eosinophils Absolute Auto 0.1 K/mm3 (0-0.3); Eosinophils Percent Auto 1.2 % (0-4.4); Hematocrit 33.9 % (37.0-47.0); Hemoglobin 10.5 g/dL (12.0-15.0); Immature Granulocyte Absolute 0.01 K/mm3 (0.00-0.031); Immature Granulocyte Percent A 0.2 % (0-0.5); Lymphocytes Absolute Auto 1.84 K/mm3 (0.9-3.2); Mean Corpuscular Hemoglobin 30.3 pg (26-34); Mean Corpuscular Volume 97.7 fl (80-100); Mean Platelet Volume 10.9 fl (7.4-10.4); Monocytes Absolute Auto 0.3 K/mm3 (0.1-0.6); Monocytes Percent Auto 5.6 % (2.6-8.5); Neutrophils Absolute Auto 3.7 K/mm3 (1.3-6.7); Neutrophils Percent Auto 61.5 % (45.5-73.1); Platelet Count Result 191 k/mm3 (150-375); Red Blood Count 3.47 M/mm3 (4.2-5.4); Red Cell Distribution Width 14.1 % (11.5-14.5); White Blood Count 5.9 K/mm3 (4.5-10.0)
[2023-10-10 17:31] LABS: Alanine Aminotransferase 7 U/L (6-35); Albumin Level 4.3 g/dL (3.5-5.1); Alkaline Phosphatase 121 U/L (38-126); Anion Gap 14 mmol/L (4-12); Aspartate Amino Transferase 20 U/L (14-36); Bilirubin,Total 0.5 mg/dL (0.2-1.3); Blood Urea Nitrogen 46 mg/dL (7-17); Calcium 8.7 mg/dL (8.4-10.2); Carbon Dioxide 17 mmol/L (22-30); Chloride 107 mmol/L (98-107); Estimated CRCL calculation 10 ml/min; Estimated Glomerular Filt Rate 15; Glucose 95 mg/dL (65-110); Potassium 5.3 mmol/L (3.4-5.0); Sodium 138 mmol/L (137-145)
[2023-10-10 17:56] LABS: Influenza A QL RT-PCR Negative (Negative); Influenza B QL RT-PCR Negative (Negative); RSV RNA, RT-PCR Negative (Negative); SARS-CoV-2 RNA PCR Negative (Negative)
--- NOTE | 2023-10-10 17:58 | ED.GENADULT ---
HPI - General Adult General Chief complaint: Dizziness Stated complaint: dizziness Time Seen by Provider: 10/10/23 17:23 History of Present Illness HPI narrative: Dottie Gallardo is an 78 y/o female who presents with reports of having some dizziness that started about 3 days ago. She states that she has had this before - she describes this as feeling off balance/ does not feel like the room is spinning / denies vision changes/ no blurry vision / no double vision / denies numbness tingling/ reports mild SALGUERO this AM - but no longer having a SALGUERO. Related Data Home Medications Medication Instructions Recorded Confirmed amlodipine 5 mg tablet 5 mg PO DAILY 03/14/20 08/11/23 ergocalciferol (vitamin D2) 1,250 1,250 mcg PO DAILY 01/30/21 08/11/23 mcg (50,000 unit) capsule gabapentin 100 mg capsule 200 mg PO QHS 07/07/22 08/11/23 gabapentin 400 mg capsule 400 mg PO TID 07/07/22 08/11/23 polyethylene glycol 3350 17 17 g PO DAILY 07/07/22 08/11/23 gram/dose oral powder sodium bicarbonate 650 mg tablet 650 mg PO BID 07/07/22 08/11/23 tramadol 50 mg tablet 50 mg PO Q6H PRN Pain 07/07/22 08/11/23 calcium carbonate (Tums) 200 mg PO DAILY 02/19/23 08/11/23 Allergies Allergy/AdvReac Type Severity Reaction Status Date / Time sulfamethoxazole Allergy Hives Verified 10/10/23 15:52 [From Bactrim] trimethoprim [From Bactrim] Allergy Hives Verified 10/10/23 15:52 codeine AdvReac Mild DIZZY Verified 10/10/23 15:52 Review of Systems Review of Systems: All systems reviewed & are unremarkable except as noted in HPI and below PMFSH Past Medical History Medical History Chondromalacia patellae, left knee CKD (chronic kidney disease) COVID-19 Gout History of adverse reaction to anesthesia HLD (hyperlipidemia) HTN (hypertension) Left knee DJD Osteopenia Right knee DJD Surgical History Surgical History Hx of cholecystectomy Family History Family History Father Diabetes mellitus Mother Kidney disease Social History Social History Smoking status: Never smoker Alcohol intake: never Substance use: never Lack of Transportation: No Lack of Food: Never True Current Housing: I Have Housing Concerned About Future Housing: No Difficulty Paying Gas/Electric Bills: No Difficulty Paying for Meds: No Currently Unemployed: No Education: Grade School Living arrangements: with family Gender identity (if verbalized by the patient): Female Exam Narrative: GENERAL: Well-appearing, well-nourished, and in no acute distress. HEAD: Normocephalic, atraumatic. EYES: PERRLA and EOMI. ENT: Nares clear, no rhinorrhea or epistaxis. Mucous membranes moist. Oropharynx without tonsillar hypertrophy exudate or other lesions. Right TM pearly seymour non bulging , Left TM not visualized due to impacted cerumen NECK: Supple. No adenopathy or masses. No carotid bruits or JVD CHEST: Clear to auscultation. No respiratory distress. No wheezes rales or rhonchi HEART: Regular rate and rhythm. No murmur heard. Normal peripheral pulses. ABDOMEN: Soft, nontender, nondistended, normal active bowel sounds. EXTREMITIES: Normal range of motion. No edema. SKIN: Warm, dry, no rash. NEURO: No focal deficits. Alert and oriented x3. PSYCH: Normal mood and affect. Course Vital Signs Vital signs: Vital Signs Temperature 36.3 C L 10/10/23 16:51 Pulse Rate 80 10/10/23 16:51 Respiratory Rate 16 10/10/23 16:51 Blood Pressure 147/81 H 10/10/23 16:51 Pulse Oximetry 100 10/10/23 16:51 Temperature 36.3 C L 10/10/23 16:51 Pulse Rate 80 10/10/23 16:51 Respiratory Rate 16 10/10/23 16:51 Blood Pressure 147/81 H 10/10/23 16:51 Pulse Oximetry 100 10/10/23 16:51 Medical Decision Making MDM Narr
[2023-10-10 17:59] LABS: Add Urine Microscopic? YES; Appearance Urine Clear (Clear); Bacteria Urine None Seen /hpf; Bilirubin Urine Negative (Negative); Blood Urine Negative (Negative); Color Urine Yellow (Yellow); Glucose Urine UA Negative (Negative); Ketones Urine Negative (Negative); Leukocyte Esterase Ur Negative LEU/UL (Negative); Nitrate Urine Negative (Negative); Non Pathogenic Casts 0-2; Protein Urine Trace mg/dL (Negative); RBC Urine 0-2 /hpf (0-2); Squamous Epithelial Cell Urine None Seen /hpf (Few); Urobilinogen Urine 0.2 mg/dL (<2.0); WBC Urine 0-5 /hpf (0-3); pH Urine 5.5 (5.0-9.0)
[2023-10-10 18:15] LABS: Troponin I < 0.012 ng/mL (0.000-0.034)
[2023-10-10] MEDS: ONDANSETRON INJ 4 MG/2 ML VIAL IV PUSH (18:42)
[2023-10-10] MEDS: MECLIZINE HCL 25 MG TABLET PO (18:42)
[2023-10-10] MEDS: SODIUM CHLORIDE 0.9% IV 500 ML 999 ML IV CONT (18:42)
== END 2023-10-10 20:32 | disposition home or self-care (01) ==
PROVIDERS: Emergency Medicine; Emergency Provider Nurse Practitioner Family; PCP Nurse Practitioner Family
DX: R42 Dizziness and giddiness (principal); Z20.822 Contact with and (suspected) exposure to COVID-19; N18.9 Chronic kidney disease, unspecified; I12.9 Hypertensive chronic kidney disease with stage 1 through stage 4 chronic kidney disease, or unspecified chronic kidney disease; E78.5 Hyperlipidemia, unspecified; M10.9 Gout, unspecified; M85.80 Other specified disorders of bone density and structure, unspecified site; M17.0 Bilateral primary osteoarthritis of knee; Z86.16 Personal history of COVID-19; Z90.49 Acquired absence of other specified parts of digestive tract; R94.31 Abnormal electrocardiogram [ECG] [EKG]; I70.0 Atherosclerosis of aorta
CPT/HCPCS: 36415; 70450; 71046; 80053; 81001; 84484; 85025; 87637; 93005; 96374; 99284; A9270; J2405; J7030; J7040